=== PATIENT | female | born 1935 | race Caucasian/White ===

== ENCOUNTER 2018-04-05 14:09 | Inpatient (IN) ==
[2018-04-05] MEDS ORDERED: Sod Chloride 0.9% Inj 1,000 ML IV.SIG ONE ×2 (14:37→16:28)
[2018-04-05 15:32] LABS: Baso # (Auto) 0.1 th/mm3 (0.0-0.2); Baso % (Auto) 0.6 % (0.0-2.0); Bilirubin,Urine Negative (Negative); Clarity,Urine Clear (Clear); Color,Urine Yellow (Yellw/Straw); Eos # (Auto) 0.3 th/mm3 (0.0-0.4); Eos % (Auto) 2.1 % (0.0-4.0); Glucose,Urine (UA) Negative (Negative); Hematocrit 30.3 % (35.0-46.0); Hemoglobin 10.8 gm/dL (11.6-15.3); Leukocyte Esterase,Urine Trace (Negative); Lymph # (Auto) 0.9 th/mm3 (1.0-4.8); Lymph % (Auto) 6.6 % (9.0-44.0); Mean Corpuscular HGB Conc 35.6 % (32.0-36.0); Mean Corpuscular Hemoglobin 35.4 pg (27.0-34.0); Mean Corpuscular Volume 99.5 fL (80.0-100.0); Mean Platelet Volume 8.4 fL (7.0-11.0); Mono # (Auto) 0.7 th/mm3 (0.0-0.9); Neut # (Auto) 11.8 th/mm3 (1.8-7.7); Neut % (Auto) 85.7 % (16.0-70.0); Nitrite,Urine Negative (Negative); Platelet Count 390 th/mm3 (150-450); Red Blood Count 3.05 mil/mm3 (4.00-5.30); Red Cell Distribution Width 13.5 % (11.6-17.2); Urobilinogen,Urine 0.2 mg/dL (Less than 2); White Blood Count 13.8 th/mm3 (4.0-11.0)
[2018-04-05 15:39] LABS: Potassium 5.3 meq/L (3.5-5.1)
[2018-04-05 15:41] LABS: Squamous Epithelial Cell,Urine 0-5 /hpf (0-5)
[2018-04-05 15:42] LABS: Hyaline Casts,Urine 0-3 /lpf (0-3)
[2018-04-05 16:07] LABS: Albumin 2.9 g/dL (3.4-5.0); Calcium 12.1 mg/dL (8.5-10.1); Carbon Dioxide 24.1 meq/L (21.0-32.0); Thyroid Stimulating Hormone 1.65 uIU/mL (0.358-3.740); Total Protein 6.9 g/dL (6.4-8.2)
--- NOTE | 2018-04-05 16:12 | XR ---
EXAM DATE: 04/05/2018 3:37 PM EDT AGE/SEX: 83 years / Female INDICATIONS: . Fever, syncopal episodes for 1 week CLINICAL DATA: This is the patient's initial encounter. Patient reports that signs and symptoms have been present for 1 week and indicates a pain score of Nonresponsive. MEDICAL/SURGICAL HISTORY: Carcinoma, breast. Mastectomy, bilateral. COMPARISON: POI, XR CHEST PA AND LAT, 03/22/2015. . FINDINGS: PA and lateral views of the thorax demonstrate advanced COPD changes. No suspicious mass lesions are seen. The heart is normal in size. The mediastinal contours are within normal limits. The osseous structure s demonstrate old compression fractures at the thoracolumbar junction. These appear similar to previo us exam.. Exam appear stable compared to prior dated 03/22/2015. CONCLUSION: COPD changes. Stable compared to a previous dated 03/22/2015. Electronically signed by: Chuy Squires MD 04/05/2018 4:11 PM EDT
--- NOTE | 2018-04-05 16:43 | ED ---
HPI General Chief complaint: Weakness Stated complaint: general weakness Source: patient, family, RN notes reviewed and old records reviewed Mode of arrival: ambulatory History of Present Illness HPI narrative: 83yF sent in by neurologist for weakness. The patient's says that the patient has a history of Alzheimer's and was seeing her neurologist (Dr. Givens) today for generalized weakness; she was sent to the ED for evaluation with a note asking to r/o C diff and obtain labs/ UA. The patient's says that the patient has had diarrhea for the past several days, is not eating or drinking very much, and has been complaining of abdominal pain. No known recent antibiotics. The patient complains of bilateral elbow pain which her states is chronic. Related Data Home Medications Medication Instructions Recorded Confirmed Magestrol Acet 40mg/Ml 10 ml PO HS 04/05/18 04/05/18 amlodipine 2.5 mg PO BID 04/05/18 04/05/18 aspirin [Aspir-81] See Label Instructions .ROUTE 04/05/18 04/05/18 .COMPLEX hydrocodone-acetaminophen 1 tab PO Q6H PRN 04/05/18 04/05/18 levothyroxine [Synthroid] 75 mcg PO DAILY 04/05/18 04/05/18 memantine-donepezil [Namzaric] 10 mg PO DAILY 04/05/18 04/05/18 nebivolol [Bystolic] 2.5 mg PO DAILY 04/05/18 04/05/18 nifedipine 60 mg PO DAILY 04/05/18 04/05/18 olmesartan [Benicar] 10 mg PO DAILY 04/05/18 04/05/18 potassium chloride 10 meq PO BID 04/05/18 04/05/18 Allergies Allergy/AdvReac Type Severity Reaction Status Date / Time NONE Allergy Uncoded 04/11/12 14:27 Review of Systems ROS: all other systems reviewed are negative Constitutional Denies fever(s) Cardiovascular Denies chest pain Respiratory Denies cough Gastrointestinal Reports diarrhea and Denies nausea Genitourinary Denies dysuria Musculoskeletal Denies back pain PMFSH History History Provided By: Patient Medical History Medical History Alzheimer disease (Acute) History of hysterectomy (Acute) Hypertension (Acute) Thyroid disease (Acute) Surgical History Surgical History H/O dilation and curettage (Acute) Social History Social History Substance History: No History of Abuse Second Hand Smoke Exposure: No Smoking Status: Former smoker How Often Do You Have a Drink Containing Alcohol: Never Recent Travel in [facility] within the Last 8 Weeks: No Recent Out of Country Travel within the Last 8 Weeks: No Immunization History Tetanus Immunization: <5 Years Hx Influenza Vaccine This Season: Yes Exam Const General: no acute distress and frail appearing [facility] Head: normocephalic and atraumatic Face and sinus: normal facial exam Other: Mucosa dry Eyes General: appearance normal, both eyes and all related structures Pupils: PERRL Chest Chest: normal inspection of the chest Resp Effort & Inspection: normal respiratory effort Auscultation: no rhonchi and no wheezes Cardio Rate: regular rate Rhythm: regular rhythm GI Other: Abdomen soft, non-distended, mild to moderate LUQ tenderness, no guarding or rebound Skin General: no rashes or lesions noted Neuro General: alert, awake and no focal motor deficits Other: Oriented to person and place but not time Hard of hearing Psych Affect: normal affect Course Consultations Consultation #1: Case discussed with Dr. Curiel of nephrology; he recommends treating for hyperkalemia and [facility] she ultimately needs hemodialysis. Will discuss with [facility]. Time: 17:15 Initial Documented Vital Signs Temperature 98.0 F 04/05/18 14:10 Pulse Rate 77 04/05/18 14:10 Respiratory Rate 16 04/05/18 14:10 Blood Pressure 133/70 04/05/18 14:10 Pulse Oximetry 98 04/05/18 14:10 Last Documented Vital Signs Temperature 98.0 F 04/05/18 14:10 Pulse Rate 76 04/05/18 17:09 Respiratory Rate 16 04/05/18 17:09 Blood Pressure 148/67 H 04/05/18 17:09 Pulse Oximetry 96 04/05/18 17:09 Critical Care Time Critical Care Time: Yes Total Critical Care Time: 32 Attestation: Total critical care time 32 minutes. This includes examining and stabilizing the patient, gathering a history from a source other than the patient (i.e., chart review, patient's spouse), formulating a differential diagnosis, ordering and interpreting laboratory tests and EKG, ordering and interpreting radiology tests, discussing the patient's care with other providers (Dr. Curiel of nephrology, Dr. Khan of [facility]), treatment of acute hyperkalemia, re-evaluation at frequent intervals, and documentation. Amount of time is separate from teaching, counseling the patient and/or family, and exclusive of procedures. Medical Decision Making MDM Narrative Medical decision making narrative: Assessment: 83yF presenting with generalized weakness and diarrhea Plan: EKG and monitor Labs UA CXR CT abd/ pelvis Addendum: Patient found to be in acute kidney injury vs failure with multiple electrolyte abnormalities. She requires transfer to the main campus for possible hemodialysis if she does not improve with medical therapy. I explained these results and plan to her , who understands and agrees. Case discussed with Dr. Puga. Medical Screen Exam Complete: Yes Emergency Medical Condition: Yes Differential Diagnosis Differential Diagnosis: Differential diagnosis includes, but is not limited to: colitis/ C diff, diverticulitis, SBO, UTI/ pyelonephritis, pneumonia, ACS, arrhythmia, electrolyte abnormality, anemia, dehydration Medical Records Medical records reviewed: Yes I reviewed the patient's medical records. Lab Data Lab results reviewed: Yes I reviewed the patient's lab results. Result diagrams: 04/05/18 15:15 04/05/18 15:15 Lab Results 04/05/18 04/05/18 04/05/18 Range/Units 15:15 15:15 15:15 CBC w Diff Auto diff final WBC 13.8 H (4.0-11.0) th/mm3 RBC 3.05 L (4.00-5.30) mil/mm3 Hgb 10.8 L (11.6-15.3) gm/dL Hct 30.3 L (35.0-46.0) % MCV 99.5 (80.0-100.0) fL MCH 35.4 H (27.0-34.0) pg MCHC 35.6 (32.0-36.0) % RDW 13.5 (11.6-17.2) % Plt Count 390 (150-450) th/mm3 MPV 8.4 (7.0-11.0) fL Neut % (Auto) 85.7 H (16.0-70.0) % Lymph % (Auto) 6.6 L (9.0-44.0) % [place] % (Auto) 5.0 (0.0-8.0) % Eos % (Auto) 2.1 (0.0-4.0) % Baso % (Auto) 0.6 (0.0-2.0) % Neut # (Auto) 11.8 H (1.8-7.7) th/mm3 Lymph # (Auto) 0.9 L (1.0-4.8) th/mm3 [place] # (Auto) 0.7 (0.0-0.9) th/mm3 Eos # (Auto) 0.3 (0.0-0.4) th/mm3 Baso # (Auto) 0.1 (0.0-0.2) th/mm3 WBC Differential . Differential Comment . Sodium 137 (136-145) meq/L Potassium 5.3 H (3.5-5.1) meq/L Chloride 104 (98-107) meq/L Carbon Dioxide 24.1 (21.0-32.0) meq/L Anion Gap 9 (5-15) meq/L BUN 80 H (7-18) mg/dL Creatinine 5.90 H (0.50-1.00) mg/dL Estimated GFR 7 L (>89) mL/min Random Glucose 78 (74-106) mg/dL Calcium 12.1 H* (8.5-10.1) mg/dL Prot Corrected Calcium 12.3 H* (8.5-10.1) mg/dL Phosphorus 6.2 H (2.5-4.9) mg/dL Magnesium 3.5 H (1.5-2.5) mg/dL Total Bilirubin 0.3 (0.2-1.0) mg/dL AST 11 L (15-37) U/L ALT 16 (10-53) U/L Alkaline Phosphatase 52 (45-117) U/L Total Protein 6.9 (6.4-8.2) g/dL Albumin 2.9 L (3.4-5.0) g/dL Lipase 138 (73-393) U/L TSH 1.650 (0.358-3.740) uIU/mL Urine Color Yellow (Yellw/Straw) Urine Clarity Clear (Clear) Urine pH 6.0 (5.0-8.5) Ur Specific [place] 1.010 (1.002-1.035) Urine Protein 30 H (Neg-Trace) mg/dL Urine Glucose (UA) Negative (Negative) mg/dL Urine Ketones Negative (Negative) mg/dL Urine Occult Blood Negative (Negative) Urine Nitrate Negative (Negative) Urine Bilirubin Negative (Negative) Urine Urobilinogen 0.2 (Less than 2) mg/dL Ur Leukocyte Esterase Trace H (Negative) Urine WBC 6-8 H (0-5) /hpf Urine WBC Clumps Few H (None) Ur Squamous Epith Cells 0-5 (0-5) /hpf Hyaline Casts 0-3 (0-3) /lpf Micro UA Comment Culture indicated Urine Culture Comments Culture indicated Imaging Data Radiologist's impression: Chest X-Ray 04/05/18 14:37 CONCLUSION: COPD changes. Stable compared to a previous dated 03/22/2015. Abdomen/Pelvis CT 04/05/18 16:28 CONCLUSION: 1. Numerous tiny nonobstructing bilateral renal calculi. 2. Mild to moderate compression deformity of L1 associated with scoliosis. Fracture appears remote. 3. Mild left basilar infiltrate. 4. Trace pericardial effusion. ECG Data Attestation: I personally reviewed and interpreted this ECG as follows: Interpretation: Rate: 73 BPM Rhythm: Sinus [place]: Normal Intervals: Normal intervals, no blocks, QTc 375 ms Q waves: III, aVF T waves: Inverted in III ST segments: No elevations or depressions Impression: Non-specific EKG, Q waves in aVF are new when compared to EKG from . Discharge Plan Discharge Disposition Patient Disposition: Transfer To [facility] [place] Discharge Condition Condition: Stable Discharge Details Diagnosis: Acute renal failure, Acute hyperkalemia, Hypercalcemia, Hypermagnesemia Physicians Team ED Provider: Janice Ennis Primary Care Provider: Virginia Schumacher Other Providers: Chuy Curiel V Rxs /Orders / Referrals /Forms Prescriptions: No Action levothyroxine [Synthroid] 75 mcg Tablet 75 mcg PO DAILY RF: 0 olmesartan [Benicar] 5 mg Tablet 10 mg PO DAILY RF: 0 nebivolol [Bystolic] 2.5 mg Tablet 2.5 mg PO DAILY RF: 0 amlodipine 2.5 mg Tablet 2.5 mg PO BID RF: 0 potassium chloride 10 mEq Capsule, Extended Release 10 meq PO BID RF: 0 nifedipine 60 mg Tablet Extended Release 60 mg PO DAILY RF: 0 Magestrol Acet 40mg/Ml 10 ml PO HS RF: 0 aspirin [Aspir-81] 81 mg Tablet,Delayed Release (Dr/Ec) See Label Instructions .ROUTE .COMPLEX RF: 0 memantine-donepezil [Namzaric] 28-10 mg Capsule,Sprinkle,Er 24hr 10 mg PO DAILY RF: 0 hydrocodone-acetaminophen 5-325 mg Tablet 1 tab PO Q6H PRN (Reason: Pain) RF: 0 Discharge Interventions Interventions: Vital Signs Last Done: 04/05/18 17:09 Status ED Status: With Doctor
--- NOTE | 2018-04-05 16:49 | CT ---
EXAM DATE: 04/05/2018 4:40 PM EDT AGE/SEX: 83 years / Female INDICATIONS: Left upper quadrant pain. General weakness. CLINICAL DATA: This is the patient's initial encounter. Patient reports that signs and symptoms have been present for 4 - 6 days and indicates a pain score of 2/10. MEDICAL/SURGICAL HISTORY: Alzheimer's disease. Hypertension. Hysterectomy. RADIATION DOSE: 4.99 CTDI (mGy) COMPARISON: No prior exams available for comparison. TECHNIQUE: Multiple contiguous axial images were obtained through the abdomen. Images were obtained using multiple row detector helical technique. Using automated exposure control and adjustment of the mA and/or kV according to patient size, radiation dose was kept as low as reasonably achievable to o btain optimal diagnostic quality images. DICOM format image data is available electronically for rev iew and comparison. FINDINGS: There is mild airspace disease at the left base and minimal dependent atelectasis at the right lung b ase. Breast augmentation noted. Trace pericardial effusion. No acute findings in the liver, adrenals, spleen or pancreas. Numerous small 1 to 2 mm calculi in bot h upper and lower pole kidneys. Multiple left renal cysts. No bowel obstruction. Mild ileus. No free air or free fluid. There is a mild to moderate compression deformity of L1 on the right side. No spondylolisthesis or si gnificant retropulsion. CONCLUSION: 1. Numerous tiny nonobstructing bilateral renal calculi. 2. Mild to moderate compression deformity of L1 associated with scoliosis. Fracture appears remote. 3. Mild left basilar infiltrate. 4. Trace pericardial effusion. Electronically signed by: Pb Carrington MD 04/05/2018 4:48 PM EDT
[2018-04-05] MEDS ORDERED: Calcium Gluconate Inj 1 GM in Dextrose 5% in Water Inj 100 ML IV.SIG ONE ×2 (17:07)
[2018-04-05 17:19] LABS: Magnesium 3.5 mg/dL (1.5-2.5); Phosphorus 6.2 mg/dL (2.5-4.9)
[2018-04-05] MEDS ORDERED: Acetaminophen 325 MG Tablet PO PRN (18:10)
[2018-04-05] MEDS: Sod Chloride 0.9% Inj 1,000 ML IV.CONT SCH (18:40)
[2018-04-05] MEDS ORDERED: Calcitonin Salmon Inj 400 UNIT/2 ML Vial IM ONE (20:00)
[2018-04-06] MEDS: Sod Chloride 0.9% Inj 1,000 ML IV.CONT SCH ×2 (04:15→17:41)
--- NOTE | 2018-04-06 09:49 | P.HPIM ---
History of Present Illness Service: [facility] Primary Care Physician: Virginia Schumacher DO Chief Complaint: Sent from doctor's office History of Present Illness: 83-year-old female with a medical history significant for Alzheimer's dementia, hypertension, hypothyroidism sent from the neurologist, Dr. Givens's office for generalized weakness. Patient sent for evaluation for C. difficile and UTI. Apparently she has been having diarrhea for the past month per her . Daughter at bedside reports it probably has been longer than a month. The patient herself has dementia and cannot contribute to the history. She does complain of chronic bilateral elbow pain. Her appetite has been poor, not eating or drinking very much. Evaluation in the emergency room revealed acute renal failure and probable UTI. Regarding chronic diarrhea, the patient was seen by Dr. Araujo once outpatient. - Diagnosis (1) Acute renal failure (2) Acute hyperkalemia (3) Hypercalcemia (4) Hypermagnesemia (5) Chronic diarrhea (6) Severe dehydration Inpatient Certification: I certify that the inpatient services were ordered in accordance with Medicare regulations governing the order. This includes certification that hospital inpatient services are reasonable and necessary and in the case of services not specified as inpatient-only under 42 CFR 419.22(n), that they are appropriately provided as inpatient services in accordance to with the 2-midnight benchmark under 43 CFR 412.3(e) Estimated Total Length of Stay (Days): 7 Plans for Post Hospital Care: Not yet determined Review of Systems unobtainable due to mental status PMFSH - History History Provided By: Patient - Medical History Medical History: Medical History (Last Reviewed 04/06/18 @ 17:12 by Judith Benjamin MD) Alzheimer disease History of hysterectomy Hypertension Thyroid disease - Surgical History Surgical History: Surgical History (Last Reviewed 04/06/18 @ 17:12 by Judith Benjamin MD) H/O dilation and curettage - Family History Family History: Family History (Last Updated 04/06/18 @ 17:12 by Judith Benjamin MD) Other Family history non-contributory - Tobacco History Second Hand Smoke Exposure: No Tobacco Use In Past 30 Days: No Smoking Status: Former smoker - Alcohol History How Often Do You Have a Drink Containing Alcohol: Never - Substance Use History Substance History: No History of Abuse - Travel History Recent Travel in the [place] Within the Last 8 Weeks: No Recent Travel Out of the Country Within the Last 8 Weeks: No - Immunization History Tetanus Immunization: <5 Years Hx Influenza Vaccine This Season: Yes Medications and Allergies Active Medications: Active Medications Acetaminophen (Tylenol) 650 mg PO Q4H PRN PRN Reason: Temp > 100.4 Al Hydroxide/Mg Hydroxide (Milk Of [place] Liq) 30 ml PO Q12H PRN PRN Reason: Mild Constipation Sodium Chloride (Ns Inj) 1,000 mls @ 100 mls/hr IV.CONT .Q10H [facility] Last Infusion: 04/06/18 09:11 Dose: 100 mls/hr Ceftriaxone Sodium 1,000 mg/ (Sodium Chloride) 100 mls @ 200 mls/hr IV.SIG Q24H [facility] Allergies Allergy/AdvReac Type Severity Reaction Status Date / Time NONE Allergy Uncoded 04/11/12 14:27 Home Medications Medication Instructions Recorded Confirmed Type Magestrol Acet 40mg/Ml 10 ml PO HS 04/05/18 04/05/18 History amlodipine 2.5 mg PO BID 04/05/18 04/05/18 History aspirin [Aspir-81] See Label Instructions .ROUTE 04/05/18 04/05/18 History .COMPLEX hydrocodone-acetaminophen 1 tab PO Q6H PRN 04/05/18 04/05/18 History levothyroxine [Synthroid] 75 mcg PO DAILY 04/05/18 04/05/18 History memantine-donepezil [Namzaric] 10 mg PO DAILY 04/05/18 04/05/18 History nebivolol [Bystolic] 2.5 mg PO DAILY 04/05/18 04/05/18 History nifedipine 60 mg PO DAILY 04/05/18 04/05/18 History olmesartan [Benicar] 10 mg PO DAILY 04/05/18 04/05/18 History potassium chloride 10 meq PO BID 04/05/18 04/05/18 History Exam Vital signs: Vital Signs 04/05/18 14:10 04/05/18 17:09 04/05/18 20:00 Temperature 98.0 F 97.6 F Pulse Rate 77 76 84 Respiratory Rate 16 16 16 Blood Pressure 133/70 148/67 H 180/87 H Pulse Oximetry 98 96 97 04/06/18 00:00 04/06/18 04:00 Temperature Pulse Rate 76 76 Respiratory Rate 16 16 Blood Pressure Pulse Oximetry 94 L 95 Intake & Output 04/05/18 04/06/18 04/06/18 18:59 06:59 18:59 Intake Total 1100 / 1100 1000 / 1000 600 / 600 Output Total 182 / 1825 Balance 1100 / 1100 -825 / -825 600 / 600 Weight 37.6 kg 37.5 kg Intake: IV 1100 / 1100 1000 / 1000 600 / 600 NS Inj 1,000 ML @ 100 mls/hr IV 600 / 600 .CONT .Q10H [facility] Rx#:[id number] NS Inj 1,000 ML @ Wide Open IV. 1000 / 1000 SIG BOLUS ONE Rx#:[id number] Rocephin Inj 1,000 MG In NS Inj 100 / 100 100 ML @ 200 mls/hr IV.SIG ONCE ONE Rx#:[id number] Output: Urine 1824 Other: Date of Last Bowel Movement 04/05/18 # Bowel Movements 1 Narrative: CONSTITUTIONAL/GENERAL: Elderly female, demented.. Vital signs reviewed SKIN: No jaundice, rashes, or concerning lesions. Not diaphoretic. HEAD: Atraumatic. Normocephalic. EYES: Pupils equal and round and reactive. ENT: Hearing grossly normal. Nose without drainage. NECK: Trachea midline. Neck is supple, non-tender. No palpable thyroid enlargement or nodularity. CARDIOVASCULAR: Normal rate and regular rhythm without murmurs, gallops, or rubs. No JVD. Peripheral pulses 2+ and symmetric. RESPIRATORY/CHEST: Symmetric, unlabored respirations. Breath sounds equal and clear to auscultation bilaterally. No wheezes, crackles, rales, or rhonchi. GASTROINTESTINAL: Abdomen soft, non-tender, non-distended. No guarding. Bowel sounds present. MUSCULOSKELETAL: Extremities without clubbing, cyanosis, or edema. NEUROLOGICAL: Awake and alert. Confused. Follow some commands. Generalized weakness. Results - Labs CBC & Chem 7: 04/06/18 11:36 04/06/18 11:36 Labs: Short CBC 04/05/18 Range/Units 15:15 WBC 13.8 H (4.0-11.0) th/mm3 Hgb 10.8 L (11.6-15.3) gm/dL Hct 30.3 L (35.0-46.0) % Plt Count 390 (150-450) th/mm3 BMP 04/05/18 15:15 Sodium 137 Potassium 5.3 H Chloride 104 Carbon Dioxide 24.1 BUN 80 H Creatinine 5.90 H Calcium 12.1 H* Liver Function 04/05/18 Range/Units 15:15 Total Bilirubin 0.3 (0.2-1.0) mg/dL AST 11 L (15-37) U/L ALT 16 (10-53) U/L Alkaline Phosphatase 52 (45-117) U/L Albumin 2.9 L (3.4-5.0) g/dL Urine 04/05/18 Range/Units 15:15 Urine Color Yellow (Yellw/Straw) Urine Clarity Clear (Clear) Urine pH 6.0 (5.0-8.5) Ur Specific [place] 1.010 (1.002-1.035) Urine Protein 30 H (Neg-Trace) mg/dL Urine Glucose (UA) Negative (Negative) mg/dL - Imaging Impressions Chest X-Ray 04/05/18 14:37 CONCLUSION: COPD changes. Stable compared to a previous dated 03/22/2015. Abdomen/Pelvis CT 04/05/18 16:28 CONCLUSION: 1. Numerous tiny nonobstructing bilateral renal calculi. 2. Mild to moderate compression deformity of L1 associated with scoliosis. Fracture appears remote. 3. Mild left basilar infiltrate. 4. Trace pericardial effusion. Caprini VTE Risk Assessment Caprini VTE Risk Assessment: Moderate/High Risk (score >= 2) Caprini Risk Assessment Model: Point Value = 1 Point Value = 2 Point Value = 3 Point Value = 5 Age 41-60 Minor surgery BMI > 25 kg/m2 Swollen legs Varicose veins or History of unexplained or recurrent spontaneous Oral contraceptives or hormone replacement Sepsis (< 1 month) Serious lung disease, including pneumonia (< 1 month) Abnormal pulmonary function Acute myocardial infarction Congestive heart failure (< 1 month) History of inflammatory bowel disease Medical patient at bed rest Age 61-74 Arthroscopic surgery Major open surgery (> 45 min) Laparoscopic surgery (> 45 min) Malignancy Confined to bed (> 72 hours) Immobilizing plaster cast Central venous access Age >= 75 History of VTE Family history of VTE Factor V Leiden Prothrombin [id number] Lupus anticoagulant Anticardiolipin antibodies Elevated serum homocysteine Heparin-induced thrombocytopenia Other congenital or acquired thrombophilia Stroke (< 1 month) Elective arthroplasty Hip, pelvis, or leg fracture Acute spinal cord injury (< 1 month) Prophylaxis Regimen: Total Risk Factor Score Risk Level Prophylaxis Regimen 0-1 Low Early ambulation 2 Moderate Order ONE of the following: *Sequential Compression Device (SCD) *Heparin 5000 units SQ BID 3-4 Higher Order ONE of the following medications: *Heparin 5000 units SQ TID *Enoxaparin/Lovenox 40 mg SQ daily (WT < 150 kg, CrCl > 30 mL/min) *Enoxaparin/Lovenox 30 mg SQ daily (WT < 150 kg, CrCl > 10-29 mL/min) *Enoxaparin/Lovenox 30 mg SQ BID (WT < 150 kg, CrCl > 30 mL/min) AND/OR *Sequential Compression Device (SCD) 5 or more Highest Order ONE of the following medications: *Heparin 5000 units SQ TID (Preferred with Epidurals) *Enoxaparin/Lovenox 40 mg SQ daily (WT < 150 kg, CrCl > 30 mL/min) *Enoxaparin/Lovenox 30 mg SQ daily (WT < 150 kg, CrCl > 10-29 mL/min) *Enoxaparin/Lovenox 30 mg SQ BID (WT < 150 kg, CrCl > 30 mL/min) AND *Sequential Compression Device (SCD) Assessment and Plan - Assessment (1) Acute renal failure Code(s): N17.9 - Acute kidney failure, unspecified Status: Acute (2) Acute hyperkalemia Code(s): E87.5 - Hyperkalemia Status: Acute (3) Hypercalcemia Code(s): E83.52 - Hypercalcemia Status: Acute (4) Hypermagnesemia Code(s): E83.41 - Hypermagnesemia Status: Acute (5) Chronic diarrhea Code(s): K52.9 - Noninfective gastroenteritis and colitis, unspecified Status : Acute (6) Severe dehydration Code(s): E86.0 - Dehydration Status: Acute - Plan 83-year-old female admitted with acute renal failure and multiple electrolyte abnormalities likely secondary to dehydration from chronic diarrhea over the past 1+ month. Patient also with evidence of urinary tract infection. Acute renal failure: Secondary to prerenal azotemia from severe dehydration. - Appreciate nephrology following. -Continue IV hydration. Avoid nephrotoxins. - Follow renal functions daily. Chronic diarrhea: This has been ongoing for at least the past month. Follows outpatient with Dr. Thomas. It does not appear she is able to maintain her fluid balance. -C. difficile negative. Send stool for culture, ova and parasites pending. - Consult the patient's oxide furnace tender for assistance. - Add Lactinex Multiple electrolytes abnormalities including hypercalcemia, hypermagnesemia, high phosphate. Secondary to severe dehydration. - Continue IV hydration. Follow trend. Possible UTI: - Empiric Rocephin. Follow urine cultures. Continue chronic medications for hypothyroidism and dementia. GI prophylaxis: PPI. Stool softener PRN constipation. DVT PPx: SCDs
--- NOTE | 2018-04-06 11:45 | MB ---
cc: Chuy Curiel MD DATE: 03/30/2018 REASON FOR CONSULTATION: Acute renal failure management. HISTORY OF PRESENT ILLNESS: This is an 83-year-old female with a history of Alzheimer disease. She also has a history of hypertension. The patient lives at home with her . She apparently has had diarrhea for several days and generalized weakness. She was seeing a neurologist who advised her to come to the emergency room for further evaluation for her weakness and possible C. difficile for diarrhea evaluation. The patient was seen in the emergency room and was found to have a BUN of 80 and a creatinine of 5.9. She had a potassium of 5.3 as well. She had no other labs here are available for review. The patient was assessed with possible volume depletion and was medically treated for hyperkalemia. She was started on IV fluids with normal saline. This was last night. Repeat labs are not available today; however, she was started on IV fluids and she made approximately 1.8 liters urine output over the last 12 hours overnight. Given the acute renal failure nephrology was consulted for further evaluation. At this point the patient is resting in bed comfortably with no acute distress. REVIEW OF SYSTEMS: The patient denies any chest pains, no shortness of breath, no nausea, no vomiting; however, has had diarrhea and generalized weakness. Otherwise, review of systems negative. PAST MEDICAL HISTORY: Includes Alzheimer disease, hysterectomy, hypertension, and thyroid disease. PAST SURGICAL HISTORY: Includes dilatation and curettage. FAMILY HISTORY: Noncontributory. SOCIAL HISTORY: Former smoker; however, no recent tobacco, alcohol, or drug use. MEDICATIONS AT HOME: 1. Megace. 2. Amlodipine 2.5 mg p.o. b.i.d. 3. Aspirin. 4. Hydrocodone p.r.n. 5. Synthroid 75 mcg daily. 6. Namzaric. 7. Bystolic 2.5 mg daily. 8. Nifedipine 60 mg p.o. daily. 9. Benicar 10 mg p.o. daily. 10. Potassium chloride 10 mEq p.o. b.i.d. ALLERGIES: NO KNOWN DRUG ALLERGIES. PHYSICAL EXAMINATION: VITAL SIGNS: At time of evaluation awake, frail. No apparent distress. NECK: Soft, supple. CARDIAC: Regular rate and rhythm. PULMONARY: Clear to auscultation. ABDOMEN: Soft, nontender, nondistended. EXTREMITIES: No edema. NEUROLOGIC: Awake, alert and oriented; however, some confusion with history of Alzheimer's. ASSESSMENT AND PLAN: 1. Acute kidney injury. The patient apparently had a previous creatinine of 1.1 at [facility] in 12/2017. There are no other labs for comparison here. The patient's family denies any previous history of kidney issues. At this point she has presented with significant azotemia. I suspect this is all acute renal failure secondary to volume depletion and recent diarrhea. Her urinalysis showed hyaline casts suggestive of volume depletion. She was started on IV fluids and currently continues on IV fluids with normal saline at 100 mL per hour. Overnight, she has made approximately 1.8 liters of urine output. This is all suggestive of an acute component with good urine output in response to IV fluids. At this point continue IVFs and keep Childress catheter for now. We will check fractional excretion of sodium as well as a renal ultrasound to assess for any chronic kidney disease; however, given her previous creatinine of 1 three months ago, I suspect this is all acute secondary to diarrhea. Continue to monitor at this point. 2. Nonobstructive renal stones. The patient had CT scan with nonobstructive renal stones seen. Continue with IV fluids at this point. There are no signs of any apparent hydronephrosis on the CT scan; however, we will go ahead and further assess these stones, as well as any possibility of obstructive renal disease with a renal ultrasound. 3. Hyperkalemia. The patient had a potassium of 5.2. This was medically treated. She is making good urine output at this point and I suspect this potassium will improve. Continue to hold ARB as well as her home potassium supplementation. 4. Hypercalcemia, patient with a calcium level of 12. She apparently had a previous calcium level of 9 three months ago at [facility]. This may be secondary to acute renal failure. Continue with IV fluids at this point. Continue to follow calcium levels. We will check an SPEP and UPEP as well. This is likely due however, to volume depletion. 5. Diarrhea. Continue to follow with primary team. Apparently this has been addressed in the past and the patient does follow up with GI as an outpatient. 6. Alzheimer disease. Continue supportive care. 7. Hypothyroidism. Continue Synthroid. MD FRAN Paredes/licha , 10:24 AM , 10:36 AM MELISSA
[2018-04-06 12:25] LABS: Hematocrit 28.8 % (35.0-46.0); Hemoglobin 9.7 gm/dL (11.6-15.3); Mean Corpuscular HGB Conc 33.7 % (32.0-36.0); Mean Corpuscular Hemoglobin 34.3 pg (27.0-34.0); Mean Corpuscular Volume 101.6 fL (80.0-100.0); Mean Platelet Volume 7.9 fL (7.0-11.0); Platelet Count 347 th/mm3 (150-450); Red Blood Count 2.83 mil/mm3 (4.00-5.30); Red Cell Distribution Width 13.7 % (11.6-17.2); White Blood Count 12.1 th/mm3 (4.0-11.0)
[2018-04-06 12:43] LABS: Calcium 10.3 mg/dL (8.5-10.1); Carbon Dioxide 22.6 meq/L (21.0-32.0); Potassium 4.2 meq/L (3.5-5.1)
--- NOTE | 2018-04-06 13:36 | US ---
EXAM DATE: 04/06/2018 1:32 PM EDT AGE/SEX: 83 years / Female INDICATIONS: Acute renal failure. CLINICAL DATA: This is the patient's initial encounter. Patient reports that signs and symptoms have been present for 1 day and indicates a pain score of 0/10. MEDICAL/SURGICAL HISTORY: . Alzheimer disease. Hypertension. Thyroid disease. . Hysterecto my. Dilation and curettage. COMPARISON: [facility], CT ABDOMEN & PELVIS W/O CONTRAST, 04/05/2018. . MEASUREMENTS: Right Kidney:__10.2 x 6.0 x 4.4 cm Left Kidney:__10.9 x 4.9 x 5.0 cm FINDINGS: Right Kidney: Redemonstration of numerous echogenic renal calyceal calculi. No significant hydronephr osis or gross focal mass. Left Kidney: Redemonstration of numerous echogenic calyceal calculi. Simple appearing anechoic cysts in the inferior pole measuring 1.8 x 1.6 x 1.7 cm and in the inferior pole measuring 2.4 x 1.6 x 2.5 cm. Bladder: Childress catheter is present. Bladder decompressed. Other: None. CONCLUSION: 1. Redemonstration of numerous bilateral renal calyceal calculi similar to recent CT exam. 2. No hydronephrosis. 3. Small left renal cysts. Electronically signed by: Markus Carbone MD 04/06/2018 1:35 PM EDT
--- NOTE | 2018-04-06 15:47 | ECG ---
Date Performed: 04/05/2018 Time Performed: 15:04:49 PTAGE: 83 years EKG: Sinus rhythm BORDERLINE LEFT AXIS DEVIATION When compared to previous tracing, axis is somewhat more Leftward, ot herwise no significant change. BORDERLINE ECG PREVIOUS TRACING : 04/30/2000 11.03 DOCTOR: Manuel Jara Interpretating Date/Time 04/06/2018 15:46:14
[2018-04-06 16:26] LABS: Bilirubin,Urine Negative (Negative); Clarity,Urine Clear (Clear); Color,Urine Straw (Yellw/Straw); Glucose,Urine (UA) 50 mg/dL (Negative); Leukocyte Esterase,Urine Negative (Negative); Mucus,Urine Few /lpf (Occasional); Nitrite,Urine Negative (Negative); Specific Gravity,Urine 1.009 (1.002-1.035)
[2018-04-07] MEDS: Megestrol Acetate Liq 400 MG/10 ML UDC PO SCH ×2 (02:22→23:00)
[2018-04-07] MEDS: Potassium Chloride 10 MEQ ER Capsule PO SCH ×3 (02:22→23:00)
[2018-04-07] MEDS: Sod Chloride 0.9% Inj 1,000 ML IV.CONT SCH ×2 (05:40→17:25)
[2018-04-07 06:03] LABS: Hematocrit 28.4 % (35.0-46.0); Hemoglobin 9.6 gm/dL (11.6-15.3); Mean Corpuscular HGB Conc 33.8 % (32.0-36.0); Mean Corpuscular Hemoglobin 34.4 pg (27.0-34.0); Mean Corpuscular Volume 101.8 fL (80.0-100.0); Mean Platelet Volume 7.9 fL (7.0-11.0); Platelet Count 362 th/mm3 (150-450); Red Blood Count 2.79 mil/mm3 (4.00-5.30); Red Cell Distribution Width 13.7 % (11.6-17.2); White Blood Count 11.4 th/mm3 (4.0-11.0)
[2018-04-07 06:14] LABS: Calcium 9.1 mg/dL (8.5-10.1); Potassium 3.6 meq/L (3.5-5.1)
[2018-04-07] MEDS: Levothyroxine 75 MCG Tablet PO SCH (06:40)
--- NOTE | 2018-04-07 09:55 | P.PNNP ---
Subjective Interval history: feels tired today, but improved mentation per Physical Exam Vital signs: Vital Signs 04/06/18 10:00 04/06/18 11:00 04/06/18 12:00 Temperature 98.1 F Pulse Rate 74 76 84 Respiratory Rate 16 Blood Pressure 160/86 H Pulse Oximetry 96 04/06/18 13:00 04/06/18 14:00 04/06/18 15:00 Temperature Pulse Rate 66 76 72 Respiratory Rate Blood Pressure Pulse Oximetry 04/06/18 16:00 04/06/18 17:00 04/06/18 18:00 Temperature 98.4 F Pulse Rate 76 68 74 Respiratory Rate 16 Blood Pressure 143/70 H Pulse Oximetry 96 04/06/18 20:00 04/07/18 00:00 Temperature 99.3 F Pulse Rate 86 74 Respiratory Rate 16 18 Blood Pressure 175/94 H 171/86 H Pulse Oximetry 95 98 Intake & Output 04/06/18 04/07/18 04/07/18 18:59 06:59 18:59 Intake Total 1580 / 1580 1240 / 1240 Output Total 1000 / 1000 500 / 500 Balance 580 / 580 740 / 740 Weight 39.5 kg Intake: IV 1100 / 1100 1000 / 1000 NS Inj 1,000 ML @ 100 mls/hr IV 1000 / 1000 1000 / 1000 .CONT .Q10H [facility] Rx#:[id number] Rocephin Inj 1,000 MG In NS Inj 100 / 100 100 ML @ 200 mls/hr IV.SIG Q24H [facility] Rx#:[id number] Oral 480 / 480 240 / 240 Output: Urine Amount (Catheter) 1000 / 1000 500 / 500 Indwelling Urethral Catheter 1000 / 1000 500 / 500 Other: Date of Last Bowel Movement 04/05/18 # Bowel Movements 1 - Constitutional no acute distress - Routine HEENT Exam Head: Present: normocephalic Eye: Present: EOMI ENT: Present: mucous membranes moist - Routine Neck Exam Present: supple - Routine Respiratory Exam Present: decreased breath sounds - Routine Cardiovascular Exam Present: RRR - Routine Abdominal Exam Present: soft - Routine Extremities Exam Comments: no edema - Routine Skin Exam Present: intact - Routine Neurological Exam Present: alert - Detailed Neurological Exam: Coma Scale Eye Opening: Spontaneous - Routine Psychiatric Exam Present: normal affect - Urinary Catheter Management Indwelling Urethral Catheter Cath placed during this visit: yes Reason for continuing: Hourly intake/output Insertion date: 04/05/18 Insertion time: 17:30 Assessment and Plan - Assessment (1) Acute renal failure Code(s): N17.9 - Acute kidney failure, unspecified Status: Acute Plan: The patient apparently had a previous creatinine of 1.1 at [facility] in 12/2017. Apparent ASHWINI due to volume depletion from diarrhea. Initial U/A with hyaline casts suggestive of volume depletion. Creatinine slowly improving on IVFs: Continue NS at 100cc/hour. Renal ultrasound and CT with non-obstructive renal stones - continue IVFs for now. 1.5L UOP/ 24 hours. No diarrhea today or yesterday. . (2) Acute hyperkalemia Code(s): E87.5 - Hyperkalemia Status: Acute Plan: Improved with increased UOP and IVFs. Continue to hold ARB as well as her home potassium supplementation for now. (3) Hypercalcemia Code(s): E83.52 - Hypercalcemia Status: Acute Plan: Initial calcium level of 12, improved to 9 now on IVFs and increased UOP. She apparently had a previous calcium level of 9 three months ago at [facility]. SPEP and UPEP were ordered yesterday, results pending. (4) Alzheimer disease Code(s): G30.9 - Alzheimer's disease, unspecified; F02.80 - Dementia in other diseases classified elsewhere without behavioral disturbance Status: Acute Plan: continue supportive care (5) Hypothyroidism Code(s): E03.9 - Hypothyroidism, unspecified Status: Acute Plan: continue synthroid
--- NOTE | 2018-04-07 11:06 | P.CONGI ---
History of Present Illness Consult date: 04/07/18 Consult reason: Persistent diarrhea Chief complaint: Acute renal failure, Hyperkalemia, History of Present Illness: This is a elderly frail 83-year-old female who came into the hospital on 2017 with generalized weakness and persistent diarrhea for at least a month or a little longer. According to the record patient is followed by [facility]. Patient was sent to the hospital for UTI and evaluation for C. difficile which currently is negative. Patient has Alzheimer's dementia and is her spokesperson. According to patient's she has been having diarrhea for the past month, states the stools are loose and dark brown without any obvious blood. On exam patient also noted some mild left lower quadrant discomfort to light palpation. CT scan shows mild ileus but no obstruction on 04/05/2018. does note some bright red streaking of blood on the toilet paper when she wipes vigorously. He started using some baby wipes and any obvious blood has gradually resolved. He denies any constipation. states patient does have occasional nausea and vomited some mucus approximately 24 hours ago. Speech therapy evaluated patient swallow and recommended pured diet with thin liquids which patient seems to be tolerating without any difficulty. Currently patient is not on any blood thinners and was seen per Dr. Thomas approximately 2 weeks ago who ordered some stool studies. Ultrasound of the abdomen and gallbladder showed numerous renal calculi. Current labs show hemoglobin 9.6, lipase 138, bilirubin and LFTs low or normal range, and WBC count 11.4. Currently patient is resting in the bed awake but randomly makes any conversation. Gastroenterology was consulted to assist in her uncontrolled diarrhea, and now will monitor the findings of the CT scan of mild ileus. Currently patient remains on IV fluids, and is eating pured diet with thin liquids. Review of Systems All other systems reviewed negative except as stated in HPI PMFSH - History History Provided By: Patient - Medical History Medical History: Medical History (Last Reviewed 04/07/18 @ 08:14 by Venessa Sifuentes) Alzheimer disease History of hysterectomy Hypertension Thyroid disease - Surgical History Surgical History: Surgical History (Last Reviewed 04/06/18 @ 17:12 by Judith Benjamin MD) H/O dilation and curettage - Family History Family History: Family History (Last Updated 04/06/18 @ 17:12 by Judith Benjamin MD) Other Family history non-contributory - Tobacco History Second Hand Smoke Exposure: No Tobacco Use In Past 30 Days: No Smoking Status: Former smoker - Alcohol History How Often Do You Have a Drink Containing Alcohol: Never - Substance Use History Substance History: No History of Abuse - Travel History Recent Travel in the [place] Within the Last 8 Weeks: No Recent Travel Out of the Country Within the Last 8 Weeks: No - Immunization History Tetanus Immunization: <5 Years Hx Influenza Vaccine This Season: Yes Medications and Allergies Active Medications: Active Medications Acetaminophen (Tylenol) 650 mg PO Q4H PRN PRN Reason: Temp > 100.4 Hydrocodone Bitart/Acetaminophen ([place] 5/325) 1 tab PO Q6H PRN PRN Reason: PAIN SCALE 1 TO 10 Last Admin: 04/07/18 09:41 Dose: 1 tab Al Hydroxide/Mg Hydroxide (Milk Of Magnesia Liq) 30 ml PO Q12H PRN PRN Reason: Mild Constipation Donepezil HCl (Aricept) 10 mg PO DAILY [facility] Last Admin: 04/07/18 09:43 Dose: 10 mg Sodium Chloride (Ns Inj) 1,000 mls @ 100 mls/hr IV.CONT .Q10H [facility] Last Admin: 04/07/18 05:40 Dose: 100 mls/hr Ceftriaxone Sodium 1,000 mg/ (Sodium Chloride) 100 mls @ 200 mls/hr IV.SIG Q24H [facility] Last Admin: 04/07/18 09:43 Dose: 200 mls/hr Lactobacillus Acidophilus (Lactinex Pkt) 1 gm PO TID [facility] Last Admin: 04/07/18 09:41 Dose: 1 gm Levothyroxine Sodium (Synthroid) 75 mcg PO DAILY@0600 [facility] Last Admin: 04/07/18 06:40 Dose: 75 mcg Megestrol Acetate (Megace Liq) 400 mg PO HS [facility] Last Admin: 04/07/18 02:22 Dose: Not Given Memantine (Namenda) 10 mg PO BID [facility] Last Admin: 04/07/18 09:43 Dose: 10 mg Nebivolol (Bystolic) 2.5 mg PO DAILY [facility] Last Admin: 04/07/18 09:43 Dose: 2.5 mg Nifedipine (Procardia) 20 mg PO TID [facility] Last Admin: 08/18/18 17:41 Dose: 20 mg Potassium Chloride (Kcl) 10 meq PO BID [facility] Last Admin: 04/07/18 09:43 Dose: 10 meq Allergies Allergy/AdvReac Type Severity Reaction Status Date / Time NONE Allergy Uncoded 04/11/12 14:27 Home Medications Medication Instructions Recorded Confirmed Type Magestrol Acet 40mg/Ml 10 ml PO HS 04/05/18 04/05/18 History amlodipine 2.5 mg PO BID 04/05/18 04/05/18 History aspirin [Aspir-81] See Label Instructions .ROUTE 04/05/18 04/05/18 History .COMPLEX hydrocodone-acetaminophen 1 tab PO Q6H PRN 04/05/18 04/05/18 History levothyroxine [Synthroid] 75 mcg PO DAILY 04/05/18 04/05/18 History memantine-donepezil [Namzaric] 10 mg PO DAILY 04/05/18 04/05/18 History nebivolol [Bystolic] 2.5 mg PO DAILY 04/05/18 04/05/18 History nifedipine 60 mg PO DAILY 04/05/18 04/05/18 History olmesartan [Benicar] 10 mg PO DAILY 04/05/18 04/05/18 History potassium chloride 10 meq PO BID 04/05/18 04/05/18 History Exam Vital signs: Vital Signs 04/06/18 12:00 04/06/18 13:00 04/06/18 14:00 Temperature 98.1 F Pulse Rate 84 66 76 Respiratory Rate 16 Blood Pressure 160/86 H Pulse Oximetry 96 04/06/18 15:00 04/06/18 16:00 04/06/18 17:00 Temperature 98.4 F Pulse Rate 72 76 68 Respiratory Rate 16 Blood Pressure 143/70 H Pulse Oximetry 96 04/06/18 18:00 04/06/18 19:00 04/06/18 20:00 Temperature 99.3 F Pulse Rate 74 76 72 Respiratory Rate 16 Blood Pressure 175/94 H Pulse Oximetry 95 04/06/18 21:00 04/06/18 22:00 04/06/18 23:00 Temperature Pulse Rate 66 72 66 Respiratory Rate Blood Pressure Pulse Oximetry 04/07/18 00:00 04/07/18 01:00 04/07/18 02:00 Temperature Pulse Rate 69 70 72 Respiratory Rate 16 Blood Pressure 171/86 H Pulse Oximetry 98 04/07/18 03:00 04/07/18 04:00 04/07/18 05:00 Temperature Pulse Rate 74 64 60 Respiratory Rate 16 Blood Pressure Pulse Oximetry 96 04/07/18 06:00 Temperature Pulse Rate 66 Respiratory Rate Blood Pressure Pulse Oximetry Intake & Output 04/06/18 04/07/18 04/07/18 18:59 06:59 18:59 Intake Total 1580 / 1580 1480 / 1480 Output Total 1000 / 1000 500 / 500 Balance 580 / 580 980 / 980 Weight 39.5 kg Intake: IV 1100 / 1100 1000 / 1000 NS Inj 1,000 ML @ 100 mls/hr IV 1000 / 1000 1000 / 1000 .CONT .Q10H [facility] Rx#:[id number] Rocephin Inj 1,000 MG In NS Inj 100 / 100 100 ML @ 200 mls/hr IV.SIG Q24H [facility] Rx#:[id number] Oral 480 / 480 480 / 480 Output: Urine Amount (Catheter) 1000 / 1000 500 / 500 Indwelling Urethral Catheter 1000 / 1000 500 / 500 Other: Date of Last Bowel Movement 04/05/18 04/05/18 # Bowel Movements 1 Results - Labs CBC & Chem 7: 04/07/18 04:35 04/07/18 04:35 Labs: Laboratory Results - last 24 hr 04/06/18 04/06/18 04/06/18 11:36 11:36 11:36 WBC 12.1 H RBC 2.83 L Hgb 9.7 L Hct 28.8 L MCV 101.6 H MCH 34.3 H MCHC 33.7 RDW 13.7 Plt Count 347 MPV 7.9 Sodium 143 Potassium 4.2 D Chloride 110 H Carbon Dioxide 22.6 Anion Gap 10 BUN 66 H Creatinine 4.95 H Estimated GFR 8 L Random Glucose 109 H Calcium 10.3 H D Total Protein (PEP) 5.8 L Urine Color Urine Clarity Urine pH Ur Specific [place] Urine Protein Urine Glucose (UA) Urine Ketones Urine Occult Blood Urine Nitrate Urine Bilirubin Urine Urobilinogen Ur Leukocyte Esterase Urine RBC Urine WBC Urine Mucus Micro UA Comment Urine Culture Comments Ur Random Creatinine 04/06/18 04/06/18 04/07/18 15:25 15:25 04:35 WBC 11.4 H RBC 2.79 L Hgb 9.6 L Hct 28.4 L MCV 101.8 H MCH 34.4 H MCHC 33.8 RDW 13.7 Plt Count 362 MPV 7.9 Sodium Potassium Chloride Carbon Dioxide Anion Gap BUN Creatinine Estimated GFR Random Glucose Calcium Total Protein (PEP) Urine Color Straw Urine Clarity Clear Urine pH 7.0 Ur Specific [place] 1.009 Urine Protein Negative Urine Glucose (UA) 50 Urine Ketones Negative Urine Occult Blood Negative Urine Nitrate Negative Urine Bilirubin Negative Urine Urobilinogen Less than 2 Ur Leukocyte Esterase Negative Urine RBC 3 Urine WBC 1 Urine Mucus Few H Micro UA Comment Cath-culture not ind Urine Culture Comments Cath-cult not ind Ur Random Creatinine 36 04/07/18 04:35 WBC RBC Hgb Hct MCV MCH MCHC RDW Plt Count MPV Sodium 141 Potassium 3.6 Chloride 110 H Carbon Dioxide 21.0 Anion Gap 10 BUN 50 H Creatinine 4.28 H Estimated GFR 10 L Random Glucose 83 Calcium 9.1 D Total Protein (PEP) Urine Color Urine Clarity Urine pH Ur Specific [place] Urine Protein Urine Glucose (UA) Urine Ketones Urine Occult Blood Urine Nitrate Urine Bilirubin Urine Urobilinogen Ur Leukocyte Esterase Urine RBC Urine WBC Urine Mucus Micro UA Comment Urine Culture Comments Ur Random Creatinine - Imaging Impressions Abdomen/Bladder Ultrasound 04/06/18 00:00 CONCLUSION: 1. Redemonstration of numerous bilateral renal calyceal calculi similar to recent CT exam. 2. No hydronephrosis. 3. Small left renal cysts. Assessment and Plan (1) Anemia Status: Acute Code(s): D64.9 - Anemia, unspecified (2) Chronic diarrhea Status: Acute Code(s): K52.9 - Noninfective gastroenteritis and colitis, unspecified (3) Ileus, unspecified Status: Acute Code(s): K56.7 - Ileus, unspecified - Plan Mild ileus seen on 04/05/2018 CT scan. Patient also notes left upper quadrant discomfort to my light palpation. Abdominal and bladder ultrasound showed numerous renal calculi. Uncontrolled diarrhea onset of symptoms at least one month may be a little longer. Stool studies were done per Dr. Thomas approximately 2 weeks ago and C. difficile is negative on admission. Has been denies any constipation but does note occasional blood when patient wipes vigorously with toilet paper. He began using baby wipes and that has to gradually improve. Uncontrolled diarrhea could be related to ileus versus medications versus inflammatory process versus infection Anemia could be acute on chronic, will need to watch for any obvious bleeding EGD colonoscopy were done along time ago unknown timing. Or findings. Hemoglobin 9.6 WBC count 11.4 leukocytosis unspecified, lipase 138, bilirubin and LFTs normal Occasional nausea and does vomit up mucus at times. Patient does have a history of Alzheimer's dementia so her swallow was evaluated this admission. Patient was recommended for pured foods and thin liquids which she appears to be tolerating. We will continue medications and conservative treatment, no plan for procedures for now unless patient becomes unstable Plan Diet pured with thin liquids Add Pepcid 40 mg. po BID Questran every 8 hours Lactobacillus iron profile, ferritin labs folate, B12, IV hydration Hemoccult stool Frequent recommendations to follow Patient was seen per Dr. Muir and myself, note was written on his behalf
[2018-04-07] MEDS ORDERED: Famotidine 20 MG Tablet PO SCH (11:30)
--- NOTE | 2018-04-07 13:26 | P.PNIM ---
Subjective Interval history: Discussed with the patient's daughter at bedside. Doing okay. No new issues. Physical Exam Vital signs: Vital Signs 04/06/18 14:00 04/06/18 15:00 04/06/18 16:00 Temperature 98.4 F Pulse Rate 76 72 76 Respiratory Rate 16 Blood Pressure 143/70 H Pulse Oximetry 96 04/06/18 17:00 04/06/18 18:00 04/06/18 19:00 Temperature Pulse Rate 68 74 76 Respiratory Rate Blood Pressure Pulse Oximetry 04/06/18 20:00 04/06/18 21:00 04/06/18 22:00 Temperature 99.3 F Pulse Rate 72 66 72 Respiratory Rate 16 Blood Pressure 175/94 H Pulse Oximetry 95 04/06/18 23:00 04/07/18 00:00 04/07/18 01:00 Temperature Pulse Rate 66 69 70 Respiratory Rate 16 Blood Pressure 171/86 H Pulse Oximetry 98 04/07/18 02:00 04/07/18 03:00 04/07/18 04:00 Temperature Pulse Rate 72 74 64 Respiratory Rate 16 Blood Pressure Pulse Oximetry 96 04/07/18 05:00 04/07/18 06:00 04/07/18 08:00 Temperature 98.0 F Pulse Rate 60 66 71 Respiratory Rate 18 Blood Pressure Pulse Oximetry 96 04/07/18 12:00 Temperature 97.7 F Pulse Rate 61 Respiratory Rate 18 Blood Pressure 161/82 H Pulse Oximetry 96 Intake & Output 04/06/18 04/07/18 04/07/18 18:59 06:59 18:59 Intake Total 1580 / 1580 1480 / 1480 100 / 100 Output Total 1000 / 1000 500 / 500 Balance 580 / 580 980 / 980 100 / 100 Weight 39.5 kg Intake: IV 1100 / 1100 1000 / 1000 100 / 100 NS Inj 1,000 ML @ 100 mls/hr IV 1000 / 1000 1000 / 1000 .CONT .Q10H SAVANNA[facility] Rx#:[id number] Rocephin Inj 1,000 MG In NS Inj 100 / 100 100 / 100 100 ML @ 200 mls/hr IV.SIG Q24H S[facility]ANNA[facility] Rx#:[id number] Oral 480 / 480 480 / 480 Output: Urine Amount (Catheter) 1000 / 1000 500 / 500 Indwelling Urethral Catheter 1000 / 1000 500 / 500 Other: Date of Last Bowel Movement 04/05/18 04/05/18 04/05/18 # Bowel Movements 1 Narrative: GENERAL: Elderly female, demented. CARDIOVASCULAR: Normal rate and regular rhythm without murmurs, gallops, or rubs. RESPIRATORY:Breath sounds equal and clear to auscultation bilaterally. GASTROINTESTINAL: Abdomen soft, non-tender, non-distended. Normal active bowel sounds MUSCULOSKELETAL: Extremities without cyanosis, or edema. NEURO: Confused, generalized weakness, follow some commands. - Urinary Catheter Management Indwelling Urethral Catheter Cath placed during this visit: yes Reason for continuing: Hourly intake/output Insertion date: 04/05/18 Insertion time: 17:30 Results - Labs CBC & Chem 7: 04/07/18 04:35 04/07/18 04:35 Laboratory Results - last 24 hr 04/06/18 04/06/18 04/07/18 15:25 15:25 04:35 WBC 11.4 H RBC 2.79 L Hgb 9.6 L Hct 28.4 L MCV 101.8 H MCH 34.4 H MCHC 33.8 RDW 13.7 Plt Count 362 MPV 7.9 Sodium Potassium Chloride Carbon Dioxide Anion Gap BUN Creatinine Estimated GFR Random Glucose Calcium Urine Color Straw Urine Clarity Clear Urine pH 7.0 Ur Specific [place] 1.009 Urine Protein Negative Urine Glucose (UA) 50 Urine Ketones Negative Urine Occult Blood Negative Urine Nitrate Negative Urine Bilirubin Negative Urine Urobilinogen Less than 2 Ur Leukocyte Esterase Negative Urine RBC 3 Urine WBC 1 Urine Mucus Few H Micro UA Comment Cath-culture not ind Urine Culture Comments Cath-cult not ind Ur Random Creatinine 36 04/07/18 04:35 WBC RBC Hgb Hct MCV MCH MCHC RDW Plt Count MPV Sodium 141 Potassium 3.6 Chloride 110 H Carbon Dioxide 21.0 Anion Gap 10 BUN 50 H Creatinine 4.28 H Estimated GFR 10 L Random Glucose 83 Calcium 9.1 D Urine Color Urine Clarity Urine pH Ur Specific [place] Urine Protein Urine Glucose (UA) Urine Ketones Urine Occult Blood Urine Nitrate Urine Bilirubin Urine Urobilinogen Ur Leukocyte Esterase Urine RBC Urine WBC Urine Mucus Micro UA Comment Urine Culture Comments Ur Random Creatinine Microbiology 04/05/18 15:15 Clean Catch Urine Urine Culture - Final 10-50,000 cfu/mL mixed gram positive arlene (probable contaminants) - Imaging Impressions Abdomen/Bladder Ultrasound 04/06/18 00:00 CONCLUSION: 1. Redemonstration of numerous bilateral renal calyceal calculi similar to recent CT exam. 2. No hydronephrosis. 3. Small left renal cysts. Assessment and Plan - Assessment (1) Acute renal failure Code(s): N17.9 - Acute kidney failure, unspecified Status: Acute (2) Acute hyperkalemia Code(s): E87.5 - Hyperkalemia Status: Acute (3) Hypercalcemia Code(s): E83.52 - Hypercalcemia Status: Acute (4) Hypermagnesemia Code(s): E83.41 - Hypermagnesemia Status: Acute (5) Chronic diarrhea Code(s): K52.9 - Noninfective gastroenteritis and colitis, unspecified Status : Acute (6) Severe dehydration Code(s): E86.0 - Dehydration Status: Acute - Plan 83-year-old female admitted with acute renal failure and multiple electrolyte abnormalities likely secondary to dehydration from chronic diarrhea over the past 1+ month. Patient also with evidence of urinary tract infection. Acute renal failure: Secondary to prerenal azotemia from severe dehydration. - Appreciate nephrology following. -Continue IV hydration. Avoid nephrotoxins. - Follow renal functions daily. Slight improvement. Chronic diarrhea: This has been ongoing for at least the past month. Follows outpatient with Dr. Thomas. It does not appear she is able to maintain her fluid balance. -C. difficile negative. stool for culture, ova and parasites pending. -GI following. Pepcid and Questran added. Multiple electrolytes abnormalities including hypercalcemia, hypermagnesemia, high phosphate. Secondary to severe dehydration. - Continue IV hydration. Follow trend. Abnormal urinalysis: Patient treated empirically with Rocephin. Urine cultures negative. Discontinue antibiotics.. Continue chronic medications for hypothyroidism and dementia. GI prophylaxis: PPI. Stool softener PRN constipation. DVT PPx: SCDs
[2018-04-07] MEDS ORDERED: metroNIDAZOLE 500 MG Tablet PO SCH (14:00)
[2018-04-07 15:08] LABS: % Iron Saturation 29.4 % (20-50)
[2018-04-07 15:34] LABS: Vitamin B12 1898 pg/mL (193-986)
[2018-04-07] MEDS: Famotidine 20 MG Tablet PO SCH (23:00)
[2018-04-08] MEDS: Sod Chloride 0.9% Inj 1,000 ML IV.CONT SCH ×3 (04:27→16:53)
[2018-04-08] MEDS: Levothyroxine 75 MCG Tablet PO SCH (08:39)
[2018-04-08] MEDS: Famotidine 20 MG Tablet PO SCH ×2 (09:56→21:07)
[2018-04-08] MEDS: Potassium Chloride 10 MEQ ER Capsule PO SCH ×2 (09:56→21:06)
--- NOTE | 2018-04-08 10:40 | P.PNNP ---
Subjective Interval history: Lying in bed. Not in distress. at bedside. Pending labs from today. IVF infusing. She is non oliguric. Physical Exam Vital signs: Vital Signs 04/07/18 11:00 04/07/18 12:00 04/07/18 13:00 Temperature 97.7 F Pulse Rate 64 56 L 66 Respiratory Rate 18 Blood Pressure 161/82 H Pulse Oximetry 96 04/07/18 14:00 04/07/18 15:00 04/07/18 16:00 Temperature 97.4 F L Pulse Rate 72 69 74 Respiratory Rate 18 Blood Pressure 121/52 L Pulse Oximetry 96 04/07/18 17:00 04/07/18 18:00 04/07/18 19:00 Temperature Pulse Rate 68 80 72 Respiratory Rate Blood Pressure Pulse Oximetry 04/07/18 20:00 04/07/18 21:00 04/07/18 22:00 Temperature Pulse Rate 70 62 78 Respiratory Rate Blood Pressure Pulse Oximetry 04/07/18 23:00 04/07/18 23:24 04/08/18 01:00 Temperature Pulse Rate 58 L 63 58 L Respiratory Rate 16 Blood Pressure 174/79 H Pulse Oximetry 97 04/08/18 02:00 04/08/18 03:00 04/08/18 04:00 Temperature Pulse Rate 68 64 52 L Respiratory Rate 18 Blood Pressure Pulse Oximetry 98 04/08/18 07:00 04/08/18 08:00 Temperature 99.1 F Pulse Rate 65 66 Respiratory Rate 18 Blood Pressure 141/73 H Pulse Oximetry 96 Intake & Output 04/07/18 04/08/18 04/08/18 18:59 06:59 18:59 Intake Total 2060 / 2060 2480 / 2480 Output Total 1000 / 1000 900 / 900 Balance 1060 / 1060 1580 / 1580 Weight 44.5 kg Intake: IV 1100 / 1100 1999 / 1999 NS Inj 1,000 ML @ 100 mls/hr IV 1000 / 1000 1999 / 1999 .CONT .Q10H [facility] Rx#:[id number] Rocephin Inj 1,000 MG In NS Inj 100 / 100 100 ML @ 200 mls/hr IV.SIG Q24H [facility]ANNA[facility] Rx#:[id number] Oral 960 / 960 480 / 480 Output: Urine 1000 / 1000 450 / 450 Urine Amount (Catheter) 450 / 450 Indwelling Urethral Catheter 450 / 450 Other: Date of Last Bowel Movement 04/05/18 04/05/18 04/08/18 - Constitutional no acute distress, cooperative - Routine HEENT Exam Head: Present: normocephalic - Routine Neck Exam Present: supple, full ROM - Routine Respiratory Exam Present: CTA bilaterally. Absent: accessory muscle use - Routine Cardiovascular Exam Present: RRR, S1, S2. Absent: murmur - Routine Abdominal Exam Present: soft, normoactive bowel sounds - Routine Extremities Exam Present: full ROM, pulses intact, normal capillary refill. Absent: edema - Routine Skin Exam Present: intact, dry, warm - Routine Neurological Exam Present: alert, CN II-XII intact, moving all extremities Hx dementia - Detailed Neurological Exam: Coma Scale Eye Opening: Spontaneous Verbal Response: Oriented Motor Response: Obey commands Andi Coma Scale Total: 15 - Routine Psychiatric Exam Present: unable to assess - Urinary Catheter Management Indwelling Urethral Catheter Cath placed during this visit: yes Reason for continuing: Hourly intake/output Insertion date: 04/05/18 Insertion time: 17:30 Assessment and Plan - Assessment (1) Acute renal failure Code(s): N17.9 - Acute kidney failure, unspecified Status: Acute Plan: Baseline creatinine of 1.1 from December at [facility]. ASHWINI most likely prerenal azotemia, and intravascular volume depletion from diarrhea. Awaiting repeat labs from today. Continue IVF. (NS at 100cc/hour). She is non oliguric. Remove mckee catheter in 1-2 days. Renal ultrasound and CT with non-obstructive renal stones, no intervention required, monitor. PO fluids encouraged. Avoid nephrotoxins. (2) Acute hyperkalemia Code(s): E87.5 - Hyperkalemia Status: Acute Plan: Improved, monitor. Continue to hold ARB as well as her home potassium supplementation for now. (3) Hypercalcemia Code(s): E83.52 - Hypercalcemia Status: Acute Plan: Improved with IVFs. SPEP and UPEP results pending. (4) Alzheimer disease Code(s): G30.9 - Alzheimer's disease, unspecified; F02.80 - Dementia in other diseases classified elsewhere without behavioral disturbance Status: Acute Plan: continue supportive care (5) Hypothyroidism Code(s): E03.9 - Hypothyroidism, unspecified Status: Acute Plan: continue Synthroid
[2018-04-08 12:09] LABS: Hematocrit 26.2 % (35.0-46.0); Mean Corpuscular HGB Conc 34.1 % (32.0-36.0); Mean Corpuscular Hemoglobin 34.8 pg (27.0-34.0); Mean Corpuscular Volume 101.8 fL (80.0-100.0); Mean Platelet Volume 7.5 fL (7.0-11.0); Platelet Count 321 th/mm3 (150-450); Red Blood Count 2.58 mil/mm3 (4.00-5.30); Red Cell Distribution Width 13.4 % (11.6-17.2); White Blood Count 9.9 th/mm3 (4.0-11.0)
[2018-04-08 12:37] LABS: Calcium 8.1 mg/dL (8.5-10.1); Carbon Dioxide 18.5 meq/L (21.0-32.0); Potassium 3.3 meq/L (3.5-5.1)
--- NOTE | 2018-04-08 13:24 | P.PNIM ---
Subjective Interval history: Patient reports she is doing okay. Discussed with at bedside. No bowel movement/diarrhea documented since yesterday. Physical Exam Vital signs: Vital Signs 04/07/18 14:00 04/07/18 15:00 04/07/18 16:00 Temperature 97.4 F L Pulse Rate 72 69 74 Respiratory Rate 18 Blood Pressure 121/52 L Pulse Oximetry 96 04/07/18 17:00 04/07/18 18:00 04/07/18 19:00 Temperature Pulse Rate 68 80 72 Respiratory Rate Blood Pressure Pulse Oximetry 04/07/18 20:00 04/07/18 21:00 04/07/18 22:00 Temperature Pulse Rate 70 62 78 Respiratory Rate Blood Pressure Pulse Oximetry 04/07/18 23:00 04/07/18 23:24 04/08/18 01:00 Temperature Pulse Rate 58 L 63 58 L Respiratory Rate 16 Blood Pressure 174/79 H Pulse Oximetry 97 04/08/18 02:00 04/08/18 03:00 04/08/18 04:00 Temperature Pulse Rate 68 64 52 L Respiratory Rate 18 Blood Pressure Pulse Oximetry 98 04/08/18 07:00 04/08/18 08:00 04/08/18 10:00 Temperature 99.1 F Pulse Rate 65 52 L 64 Respiratory Rate 18 Blood Pressure 141/73 H Pulse Oximetry 96 04/08/18 10:43 04/08/18 11:00 04/08/18 12:00 Temperature 98.5 F Pulse Rate 56 L 70 60 Respiratory Rate 16 Blood Pressure 115/55 L Pulse Oximetry 94 L 04/08/18 13:00 Temperature Pulse Rate 56 L Respiratory Rate Blood Pressure Pulse Oximetry Intake & Output 04/07/18 04/08/18 04/08/18 18:59 06:59 18:59 Intake Total 2060 / 2060 2480 / 2480 100 / 100 Output Total 1000 / 1000 900 / 900 Balance 1060 / 1060 1580 / 1580 100 / 100 Weight 44.5 kg Intake: IV 1100 / 1100 1999 / 1999 100 / 100 NS Inj 1,000 ML @ 100 mls/hr IV 1000 / 1000 1999 / 1999 .CONT .Q10H SAVANNA[facility] Rx#:[id number] Rocephin Inj 1,000 MG In NS Inj 100 / 100 100 / 100 100 ML @ 200 mls/hr IV.SIG Q24H SAVANNA[facility] Rx#:[id number] Oral 960 / 960 480 / 480 Output: Urine 1000 / 1000 450 / 450 Urine Amount (Catheter) 450 / 450 Indwelling Urethral Catheter 450 / 450 Other: Date of Last Bowel Movement 04/05/18 04/05/18 04/08/18 Narrative: GENERAL: Elderly female, demented. CARDIOVASCULAR: Normal rate and regular rhythm without murmurs, gallops, or rubs. RESPIRATORY:Breath sounds equal and clear to auscultation bilaterally. GASTROINTESTINAL: Abdomen soft, non-tender, non-distended. Normal active bowel sounds MUSCULOSKELETAL: Extremities without cyanosis, or edema. NEURO: Confused, generalized weakness, follow some commands. - Urinary Catheter Management Indwelling Urethral Catheter Cath placed during this visit: yes Reason for continuing: Hourly intake/output Insertion date: 04/05/18 Insertion time: 17:30 Results - Labs CBC & Chem 7: 04/08/18 11:20 04/08/18 11:20 Laboratory Results - last 24 hr 04/07/18 04/07/18 04/07/18 14:30 14:30 18:00 WBC RBC Hgb Hct MCV MCH MCHC RDW Plt Count MPV Sodium Potassium Chloride Carbon Dioxide Anion Gap BUN Creatinine Estimated GFR Random Glucose Calcium Iron 75 TIBC 255 % Saturation 29.4 Ferritin 76 Vitamin B12 1898 H Folate Greater than 20.0 H Ur 24 Hour Volume 1000 Ur Total Protein 24 Hr 54 04/08/18 04/08/18 11:20 11:20 WBC 9.9 RBC 2.58 L Hgb 9.0 L Hct 26.2 L MCV 101.8 H MCH 34.8 H MCHC 34.1 RDW 13.4 Plt Count 321 MPV 7.5 Sodium 140 Potassium 3.3 L Chloride 110 H Carbon Dioxide 18.5 L Anion Gap 12 BUN 36 H Creatinine 3.27 H Estimated GFR 14 L Random Glucose 87 Calcium 8.1 L D Iron TIBC % Saturation Ferritin Vitamin B12 Folate Ur 24 Hour Volume Ur Total Protein 24 Hr Microbiology 04/08/18 07:14 Stool Occult Blood - Final Hemoccult negative 04/05/18 15:15 Clean Catch Urine Urine Culture - Final 10-50,000 cfu/mL mixed gram positive arlene (probable contaminants) Assessment and Plan - Assessment (1) Acute renal failure Code(s): N17.9 - Acute kidney failure, unspecified Status: Acute (2) Acute hyperkalemia Code(s): E87.5 - Hyperkalemia Status: Acute (3) Hypercalcemia Code(s): E83.52 - Hypercalcemia Status: Acute (4) Hypermagnesemia Code(s): E83.41 - Hypermagnesemia Status: Acute (5) Chronic diarrhea Code(s): K52.9 - Noninfective gastroenteritis and colitis, unspecified Status : Acute (6) Severe dehydration Code(s): E86.0 - Dehydration Status: Acute - Plan 83-year-old female admitted with acute renal failure and multiple electrolyte abnormalities likely secondary to dehydration from chronic diarrhea over the past 1+ month. Patient also with evidence of urinary tract infection. Acute renal failure: Secondary to prerenal azotemia from severe dehydration. - Appreciate nephrology following. -Continue IV hydration. Avoid nephrotoxins. - Follow renal functions daily. Improving. Chronic diarrhea: This has been ongoing for at least the past month. Follows outpatient with Dr. Thomas. It does not appear she is able to maintain her fluid balance. -C. difficile negative. stool culture so far negative for enteric pathogens. -GI following. Pepcid and Questran added. -Diarrhea seems to be resolving. Multiple electrolytes abnormalities including hypercalcemia, hypermagnesemia, high phosphate. Secondary to severe dehydration. - Continue IV hydration. Follow trend. Abnormal urinalysis: Patient treated empirically with Rocephin. Urine cultures negative. Discontinue antibiotics.. Continue chronic medications for hypothyroidism and dementia. GI prophylaxis: PPI. Stool softener PRN constipation. DVT PPx: SCDs Discharge Planning: Anticipate discharge soon if renal function continues to improve and she is able to maintain hydration. Diarrhea seems to be resolving.
--- NOTE | 2018-04-08 18:32 | P.PNGI ---
Subjective Interval history: Patient is resting in the bed and appears more alert today has been is in the room <Rosmery Haq M - Last Filed: 04/08/18 18:26> Physical Exam Vital signs: Vital Signs 04/07/18 19:00 04/07/18 20:00 04/07/18 21:00 Temperature Pulse Rate 72 70 62 Respiratory Rate Blood Pressure Pulse Oximetry 04/07/18 22:00 04/07/18 23:00 04/07/18 23:24 Temperature Pulse Rate 78 58 L 63 Respiratory Rate 16 Blood Pressure 174/79 H Pulse Oximetry 97 04/08/18 01:00 04/08/18 02:00 04/08/18 03:00 Temperature Pulse Rate 58 L 68 64 Respiratory Rate Blood Pressure Pulse Oximetry 04/08/18 04:00 04/08/18 07:00 04/08/18 08:00 Temperature 99.1 F Pulse Rate 52 L 65 52 L Respiratory Rate 18 18 Blood Pressure 141/73 H Pulse Oximetry 98 96 04/08/18 10:00 04/08/18 10:43 04/08/18 11:00 Temperature Pulse Rate 64 56 L 70 Respiratory Rate Blood Pressure Pulse Oximetry 04/08/18 12:00 04/08/18 13:00 04/08/18 14:00 Temperature 98.5 F Pulse Rate 60 56 L 73 Respiratory Rate 16 Blood Pressure 115/55 L Pulse Oximetry 94 L 04/08/18 15:00 04/08/18 15:30 04/08/18 16:00 Temperature 98.2 F Pulse Rate 67 67 62 Respiratory Rate 20 18 Blood Pressure 123/57 L Pulse Oximetry 95 04/08/18 17:00 04/08/18 18:00 Temperature Pulse Rate 64 68 Respiratory Rate Blood Pressure Pulse Oximetry Intake & Output 04/07/18 04/08/18 04/08/18 18:59 06:59 18:59 Intake Total 2060 / 2060 2480 / 2480 1820 / 1820 Output Total 1000 / 1000 900 / 900 800 / 800 Balance 1060 / 1060 1580 / 1580 1020 / 1020 Weight 44.5 kg Intake: IV 1100 / 1100 1999 / 1999 1100 / 1100 NS Inj 1,000 ML @ 60 mls/hr IV. 1000 / 1000 1999 / 1999 1000 / 1000 CONT .[id number] [facility] Rx#: [id number] Rocephin Inj 1,000 MG In NS Inj 100 / 100 100 / 100 100 ML @ 200 mls/hr IV.SIG Q24H [facility] Rx#:[id number] Oral 960 / 960 480 / 480 720 / 720 Output: Urine 1000 / 1000 450 / 450 Urine Amount (Catheter) 450 / 450 800 / 800 Indwelling Urethral Catheter 450 / 450 800 / 800 Other: Date of Last Bowel Movement 04/05/18 04/05/18 04/08/18 - Constitutional no acute distress, thin, chronically ill appearing - Routine HEENT Exam Head: Present: normocephalic ENT: Present: mucous membranes moist - Routine Respiratory Exam Present: accessory muscle use (No shortness of breath respirations even and unlabored) - Routine Cardiovascular Exam Present: S1, S2 - Routine Abdominal Exam Present: soft, normoactive bowel sounds (No abdominal pain) - Routine Skin Exam Present: pallor - Routine Neurological Exam Present: alert (Awake) - Urinary Catheter Management Indwelling Urethral Catheter Cath placed during this visit: yes Reason for continuing: Hourly intake/output Insertion date: 04/05/18 Insertion time: 17:30 <Rosmery Haq - Last Filed: 04/08/18 18:26> Vital signs: Vital Signs 04/07/18 20:00 04/07/18 21:00 04/07/18 22:00 Temperature Pulse Rate 70 62 78 Respiratory Rate Blood Pressure Pulse Oximetry 04/07/18 23:00 04/07/18 23:24 04/08/18 01:00 Temperature Pulse Rate 58 L 63 58 L Respiratory Rate 16 Blood Pressure 174/79 H Pulse Oximetry 97 04/08/18 02:00 04/08/18 03:00 04/08/18 04:00 Temperature Pulse Rate 68 64 52 L Respiratory Rate 18 Blood Pressure Pulse Oximetry 98 04/08/18 07:00 04/08/18 08:00 04/08/18 10:00 Temperature 99.1 F Pulse Rate 65 52 L 64 Respiratory Rate 18 Blood Pressure 141/73 H Pulse Oximetry 96 04/08/18 10:43 04/08/18 11:00 04/08/18 12:00 Temperature 98.5 F Pulse Rate 56 L 70 60 Respiratory Rate 16 Blood Pressure 115/55 L Pulse Oximetry 94 L 04/08/18 13:00 04/08/18 14:00 04/08/18 15:00 Temperature Pulse Rate 56 L 73 67 Respiratory Rate Blood Pressure Pulse Oximetry 04/08/18 15:30 04/08/18 16:00 04/08/18 17:00 Temperature 98.2 F Pulse Rate 67 62 64 Respiratory Rate 20 18 Blood Pressure 123/57 L Pulse Oximetry 95 04/08/18 18:00 Temperature Pulse Rate 68 Respiratory Rate Blood Pressure Pulse Oximetry Intake & Output 04/08/18 04/08/18 04/09/18 06:59 18:59 06:59 Intake Total 2480 / 2480 1820 / 1820 Output Total 900 / 900 800 / 800 Balance 1580 / 1580 1020 / 1020 Weight 44.5 kg Intake: IV 1999 1100 / 1100 NS Inj 1,000 ML @ 60 mls/hr IV. 1999 / 1999 1000 / 1000 CONT .[id number] [facility] Rx#: [id number] Rocephin Inj 1,000 MG In NS Inj 100 / 100 100 ML @ 200 mls/hr IV.SIG Q24H [facility] Rx#:[id number] Oral 480 / 480 720 / 720 Output: Urine 450 / 450 Urine Amount (Catheter) 450 / 450 800 / 800 Indwelling Urethral Catheter 450 / 450 800 / 800 Other: Date of Last Bowel Movement 04/05/18 04/08/18 - Urinary Catheter Management Indwelling Urethral Catheter Cath placed during this visit: no <Matthias Swan E - Last Filed: 04/08/18 19:24> Results - Labs CBC & Chem 7: 04/08/18 11:20 04/08/18 11:20 Laboratory Results - last 24 hr 04/07/18 04/08/18 04/08/18 18:00 11:20 11:20 WBC 9.9 RBC 2.58 L Hgb 9.0 L Hct 26.2 L MCV 101.8 H MCH 34.8 H MCHC 34.1 RDW 13.4 Plt Count 321 MPV 7.5 Sodium 140 Potassium 3.3 L Chloride 110 H Carbon Dioxide 18.5 L Anion Gap 12 BUN 36 H Creatinine 3.27 H Estimated GFR 14 L Random Glucose 87 Calcium 8.1 L D Ur 24 Hour Volume 1000 Ur Total Protein 24 Hr 54 Microbiology 04/08/18 07:14 Stool Stool for WBCs - Final No WBC's seen 04/08/18 07:14 Stool Cryptosporidium Antigen - Final Negative - No Cryptosporicium antigen detected In selected cases of patients with a history of immunosuppression or foreign travel, a full ova and parasites examination may be desired. Contact the microbiology lab if full workup is indicated and subit another specimen for testing. 04/08/18 07:14 Stool Giardia Antigen (ALBINO) - Final Negative - No Giardia Antigen detected In selected cases of patients with a history of immunosuppression or foreign travel, a full ova and parasites examination may be desired. Contact the microbiology lab if full workup is indicated and subit another specimen for testing. 04/08/18 07:14 Stool Enteric Pathogens (PCR) - Final No enteric pathogens detected by PCR (No Salmonella sp., Shigella sp., Campylobacter sp., Yersinia enterocolitica, Vibrio sp., Norovirus, or EHEC (Shiga Toxin 1 or Shiga Toxin 2) detected. 04/08/18 07:14 Stool Occult Blood - Final Hemoccult negative <Rosmery Haq - Last Filed: 04/08/18 18:26> - Labs CBC & Chem 7: 04/08/18 11:20 04/08/18 11:20 Laboratory Results - last 24 hr 04/08/18 04/08/18 11:20 11:20 WBC 9.9 RBC 2.58 L Hgb 9.0 L Hct 26.2 L MCV 101.8 H MCH 34.8 H MCHC 34.1 RDW 13.4 Plt Count 321 MPV 7.5 Sodium 140 Potassium 3.3 L Chloride 110 H Carbon Dioxide 18.5 L Anion Gap 12 BUN 36 H Creatinine 3.27 H Estimated GFR 14 L Random Glucose 87 Calcium 8.1 L D Microbiology 04/08/18 07:14 Stool Stool for WBCs - Final No WBC's seen 04/08/18 07:14 Stool Cryptosporidium Antigen - Final Negative - No Cryptosporicium antigen detected In selected cases of patients with a history of immunosuppression or foreign travel, a full ova and parasites examination may be desired. Contact the microbiology lab if full workup is indicated and subit another specimen for testing. 04/08/18 07:14 Stool Giardia Antigen (ALBINO) - Final Negative - No Giardia Antigen detected In selected cases of patients with a history of immunosuppression or foreign travel, a full ova and parasites examination may be desired. Contact the microbiology lab if full workup is indicated and subit another specimen for testing. 04/08/18 07:14 Stool Enteric Pathogens (PCR) - Final No enteric pathogens detected by PCR (No Salmonella sp., Shigella sp., Campylobacter sp., Yersinia enterocolitica, Vibrio sp., Norovirus, or EHEC (Shiga Toxin 1 or Shiga Toxin 2) detected. 04/08/18 07:14 Stool Occult Blood - Final Hemoccult negative <Matthias Swan - Last Filed: 04/08/18 19:24> Assessment and Plan (1) Anemia Status: Acute Code(s): D64.9 - Anemia, unspecified (2) Chronic diarrhea Status: Acute Code(s): K52.9 - Noninfective gastroenteritis and colitis, unspecified (3) Ileus, unspecified Status: Acute Code(s): K56.7 - Ileus, unspecified - Plan Mild ileus seen on 04/05/2018 CT scan. Patient also notes left upper quadrant discomfort to my light palpation. Abdominal and bladder ultrasound showed numerous renal calculi. Uncontrolled diarrhea onset of symptoms at least one month may be a little longer. Stool studies were done per Dr. Thomas approximately 2 weeks ago and C. difficile is negative on admission. Has been denies any constipation but does note occasional blood when patient wipes vigorously with toilet paper. He began using baby wipes and that has to gradually improve. Uncontrolled diarrhea could be related to ileus versus medications versus inflammatory process versus infection Anemia could be acute on chronic, will need to watch for any obvious bleeding EGD colonoscopy were done along time ago unknown timing. Or findings. Hemoglobin 9.6 WBC count 11.4 leukocytosis unspecified, lipase 138, bilirubin and LFTs normal Occasional nausea and does vomit up mucus at times. Patient does have a history of Alzheimer's dementia so her swallow was evaluated this admission. Patient was recommended for pured foods and thin liquids which she appears to be tolerating. We will continue medications and conservative treatment, no plan for procedures for now unless patient becomes unstable 04/08/2018 patient appears to be feeling somewhat better and generalized color is pink. Staff notes no diarrhea over the past couple of days so cholestyramine had inhaled but patient did have loose stools today without any blood noted. Mild ileus was noted on original abdominal x-ray will recheck KUB in the morning. Anemia workup done. Patient is eating very minimal amounts of food according to but is drinking boost and supplements which could be causing her diarrhea. Plan Diet pured with thin liquids Pepcid Continue Questran Lactobacillus KUB in a.m. IV hydration continues Patient was seen per Dr. Swan and myself, note was written on his behalf <Rosmery Haq - Last Filed: 04/08/18 18:26> (1) Anemia Status: Acute Code(s): D64.9 - Anemia, unspecified (2) Chronic diarrhea Status: Acute Code(s): K52.9 - Noninfective gastroenteritis and colitis, unspecified (3) Ileus, unspecified Status: Acute Code(s): K56.7 - Ileus, unspecified - Attending Attestation Patient seen and examined Agree with above Continue with current supportive care Monitor labs <Matthias Swan - Last Filed: 04/08/18 19:24>
[2018-04-08] MEDS: Megestrol Acetate Liq 400 MG/10 ML UDC PO SCH (21:08)
[2018-04-09] MEDS: Levothyroxine 75 MCG Tablet PO SCH (05:46)
[2018-04-09] MEDS: Famotidine 20 MG Tablet PO SCH ×2 (08:32→21:06)
[2018-04-09] MEDS: Potassium Chloride 10 MEQ ER Capsule PO SCH ×2 (08:33→21:05)
[2018-04-09 08:37] LABS: Albumin 2.2 g/dL (3.4-5.0); Calcium 7.8 mg/dL (8.5-10.1); Carbon Dioxide 18.4 meq/L (21.0-32.0); Magnesium 1.6 mg/dL (1.5-2.5); Potassium 3.7 meq/L (3.5-5.1)
--- NOTE | 2018-04-09 11:16 | P.PNIM ---
Subjective Interval history: Patient is feeling better. Discussed with at bedside. No diarrhea. She is drinking more. Eating some. Physical Exam Vital signs: Vital Signs 04/08/18 12:00 04/08/18 13:00 04/08/18 14:00 Temperature 98.5 F Pulse Rate 60 56 L 73 Respiratory Rate 16 Blood Pressure 115/55 L Pulse Oximetry 94 L 04/08/18 15:00 04/08/18 15:30 04/08/18 16:00 Temperature 98.2 F Pulse Rate 67 67 62 Respiratory Rate 20 18 Blood Pressure 123/57 L Pulse Oximetry 95 04/08/18 17:00 04/08/18 18:00 04/08/18 19:00 Temperature Pulse Rate 64 68 60 Respiratory Rate Blood Pressure Pulse Oximetry 04/08/18 20:00 04/08/18 20:52 04/08/18 21:00 Temperature 98.1 F Pulse Rate 70 70 68 Respiratory Rate 17 Blood Pressure 136/66 Pulse Oximetry 95 04/08/18 22:00 04/08/18 23:00 04/08/18 23:11 Temperature 98.0 F Pulse Rate 62 60 74 Respiratory Rate 17 Blood Pressure 152/68 H Pulse Oximetry 96 04/09/18 00:00 04/09/18 01:00 04/09/18 02:00 Temperature Pulse Rate 54 L 72 58 L Respiratory Rate Blood Pressure Pulse Oximetry 04/09/18 02:30 04/09/18 03:00 04/09/18 04:00 Temperature 98.1 F Pulse Rate 66 64 Respiratory Rate 17 19 Blood Pressure 158/79 H Pulse Oximetry 97 04/09/18 05:00 04/09/18 06:00 04/09/18 07:00 Temperature 98.7 F Pulse Rate 62 82 65 Respiratory Rate 20 Blood Pressure 160/79 H Pulse Oximetry 96 04/09/18 08:00 04/09/18 09:00 04/09/18 10:00 Temperature Pulse Rate 79 72 67 Respiratory Rate Blood Pressure Pulse Oximetry Intake & Output 04/08/18 04/09/18 04/09/18 18:59 06:59 18:59 Intake Total 1820 / 1820 400 / 400 100 / 100 Output Total 800 / 800 900 / 900 Balance 1020 / 1020 -500 / -500 100 / 100 Weight 42 kg Intake: IV 1100 / 1100 100 / 100 NS Inj 1,000 ML @ 60 mls/hr IV. 1000 / 1000 CONT .[id number] [facility] Rx#: [id number] Rocephin Inj 1,000 MG In NS Inj 100 / 100 100 / 100 100 ML @ 200 mls/hr IV.SIG Q24H [facility] Rx#:[id number] Oral 720 / 720 400 / 400 Output: Urine Amount (Catheter) 800 / 800 900 / 900 Indwelling Urethral Catheter 800 / 800 900 / 900 Other: Date of Last Bowel Movement 04/08/18 04/09/18 04/09/18 Narrative: GENERAL: Elderly female, demented. CARDIOVASCULAR: Normal rate and regular rhythm without murmurs, gallops, or rubs. RESPIRATORY:Breath sounds equal and clear to auscultation bilaterally. GASTROINTESTINAL: Abdomen soft, non-tender, non-distended. Normal active bowel sounds MUSCULOSKELETAL: Extremities without cyanosis, or edema. NEURO: Confused, generalized weakness, follow some commands. - Urinary Catheter Management Indwelling Urethral Catheter Cath placed during this visit: yes Reason for continuing: Hourly intake/output Insertion date: 04/05/18 Insertion time: 17:30 Results - Labs CBC & Chem 7: 04/08/18 11:20 04/09/18 06:54 Laboratory Results - last 24 hr 04/07/18 04/08/18 04/08/18 18:00 11:20 11:20 WBC 9.9 RBC 2.58 L Hgb 9.0 L Hct 26.2 L MCV 101.8 H MCH 34.8 H MCHC 34.1 RDW 13.4 Plt Count 321 MPV 7.5 Sodium 140 Potassium 3.3 L Chloride 110 H Carbon Dioxide 18.5 L Anion Gap 12 BUN 36 H Creatinine 3.27 H Estimated GFR 14 L Random Glucose 87 Calcium 8.1 L D Phosphorus Magnesium Albumin Ur Total Protein 24 Hr 536 H 04/09/18 06:54 WBC RBC Hgb Hct MCV MCH MCHC RDW Plt Count MPV Sodium 140 Potassium 3.7 Chloride 113 H Carbon Dioxide 18.4 L Anion Gap 9 BUN 27 H Creatinine 2.88 H Estimated GFR 16 L Random Glucose 81 Calcium 7.8 L Phosphorus 3.0 Magnesium 1.6 Albumin 2.2 L Ur Total Protein 24 Hr Microbiology 04/08/18 07:14 Stool Stool for WBCs - Final No WBC's seen 04/08/18 07:14 Stool Cryptosporidium Antigen - Final Negative - No Cryptosporicium antigen detected In selected cases of patients with a history of immunosuppression or foreign travel, a full ova and parasites examination may be desired. Contact the microbiology lab if full workup is indicated and subit another specimen for testing. 04/08/18 07:14 Stool Giardia Antigen (ALBINO) - Final Negative - No Giardia Antigen detected In selected cases of patients with a history of immunosuppression or foreign travel, a full ova and parasites examination may be desired. Contact the microbiology lab if full workup is indicated and subit another specimen for testing. 04/08/18 07:14 Stool Enteric Pathogens (PCR) - Final No enteric pathogens detected by PCR (No Salmonella sp., Shigella sp., Campylobacter sp., Yersinia enterocolitica, Vibrio sp., Norovirus, or EHEC (Shiga Toxin 1 or Shiga Toxin 2) detected. 04/08/18 07:14 Stool Occult Blood - Final Hemoccult negative Assessment and Plan - Assessment (1) Acute renal failure Code(s): N17.9 - Acute kidney failure, unspecified Status: Acute (2) Acute hyperkalemia Code(s): E87.5 - Hyperkalemia Status: Acute (3) Hypercalcemia Code(s): E83.52 - Hypercalcemia Status: Acute (4) Hypermagnesemia Code(s): E83.41 - Hypermagnesemia Status: Acute (5) Chronic diarrhea Code(s): K52.9 - Noninfective gastroenteritis and colitis, unspecified Status : Acute (6) Severe dehydration Code(s): E86.0 - Dehydration Status: Acute - Plan 83-year-old female admitted with acute renal failure and multiple electrolyte abnormalities likely secondary to dehydration from chronic diarrhea over the past 1+ month. Patient also presented with evidence of urinary tract infection. Acute renal failure: Secondary to prerenal azotemia from severe dehydration. - Appreciate nephrology following. -Continue IV hydration. Decreased per nephrology. Avoid nephrotoxins. - Follow renal functions daily. Improving. Chronic diarrhea: This has been ongoing for at least the past month. Follows outpatient with Dr. Thomas. It does not appear she is able to maintain her fluid balance. -C. difficile negative. stool culture so far negative for enteric pathogens. -GI following. Pepcid and Questran added. -Diarrhea resolved Multiple electrolytes abnormalities including hypercalcemia, hypermagnesemia, high phosphate. Secondary to severe dehydration. - Continue IV hydration. Follow trend. Abnormal urinalysis: Patient treated empirically with Rocephin. Urine cultures negative. Discontinue antibiotics.. Continue chronic medications for hypothyroidism and dementia. GI prophylaxis: PPI. Stool softener PRN constipation. DVT PPx: SCDs Discharge Planning: Anticipate discharge tomorrow if renal functions continued to improve.
[2018-04-09] MEDS: Sod Chloride 0.9% Inj 1,000 ML IV.CONT SCH ×2 (11:46→21:15)
--- NOTE | 2018-04-09 11:58 | P.PNGI ---
Subjective Interval history: Sitting up in the bed eyes open more alert today Participating and simple conversation in room Eating small amounts of pured food, frequent intervals BM soft, no watery diarrhea in the past 24 hours <Rosmery Haq M - Last Filed: 04/09/18 11:53> Physical Exam Vital signs: Vital Signs 04/08/18 12:00 04/08/18 13:00 04/08/18 14:00 Temperature 98.5 F Pulse Rate 60 56 L 73 Respiratory Rate 16 Blood Pressure 115/55 L Pulse Oximetry 94 L 04/08/18 15:00 04/08/18 15:30 04/08/18 16:00 Temperature 98.2 F Pulse Rate 67 67 62 Respiratory Rate 20 18 Blood Pressure 123/57 L Pulse Oximetry 95 04/08/18 17:00 04/08/18 18:00 04/08/18 19:00 Temperature Pulse Rate 64 68 60 Respiratory Rate Blood Pressure Pulse Oximetry 04/08/18 20:00 04/08/18 20:52 04/08/18 21:00 Temperature 98.1 F Pulse Rate 70 70 68 Respiratory Rate 17 Blood Pressure 136/66 Pulse Oximetry 95 04/08/18 22:00 04/08/18 23:00 04/08/18 23:11 Temperature 98.0 F Pulse Rate 62 60 74 Respiratory Rate 17 Blood Pressure 152/68 H Pulse Oximetry 96 04/09/18 00:00 04/09/18 01:00 04/09/18 02:00 Temperature Pulse Rate 54 L 72 58 L Respiratory Rate Blood Pressure Pulse Oximetry 04/09/18 02:30 04/09/18 03:00 04/09/18 04:00 Temperature 98.1 F Pulse Rate 66 64 Respiratory Rate 17 19 Blood Pressure 158/79 H Pulse Oximetry 97 04/09/18 05:00 04/09/18 06:00 04/09/18 07:00 Temperature 98.7 F Pulse Rate 62 82 65 Respiratory Rate 20 Blood Pressure 160/79 H Pulse Oximetry 96 04/09/18 08:00 04/09/18 09:00 04/09/18 10:00 Temperature Pulse Rate 79 72 67 Respiratory Rate Blood Pressure Pulse Oximetry 04/09/18 11:00 Temperature 99.1 F Pulse Rate 72 Respiratory Rate 18 Blood Pressure 131/63 Pulse Oximetry 95 Intake & Output 04/08/18 04/09/18 04/09/18 18:59 06:59 18:59 Intake Total 1820 / 1820 400 / 400 600 / 600 Output Total 800 / 800 900 / 900 Balance 1020 / 1020 -500 / -500 600 / 600 Weight 42 kg Intake: IV 1100 / 1100 600 / 600 NS Inj 1,000 ML @ 60 mls/hr IV. 1000 / 1000 500 / 500 CONT .[id number] SAVANNAH Rx#: [id number] Rocephin Inj 1,000 MG In NS Inj 100 / 100 100 / 100 100 ML @ 200 mls/hr IV.SIG Q24H SAVANNAH Rx#:[id number] Oral 720 / 720 400 / 400 Output: Urine Amount (Catheter) 800 / 800 900 / 900 Indwelling Urethral Catheter 800 / 800 900 / 900 Other: Date of Last Bowel Movement 04/08/18 04/09/18 04/09/18 - Constitutional no acute distress, chronically ill appearing - Routine HEENT Exam Head: Present: normocephalic ENT: Present: mucous membranes moist - Routine Respiratory Exam Present: accessory muscle use (No shortness of breath) - Routine Cardiovascular Exam Present: S1, S2 - Routine Abdominal Exam Present: soft (Round, no abdominal pain) - Urinary Catheter Management Indwelling Urethral Catheter Cath placed during this visit: yes Reason for continuing: Hourly intake/output Insertion date: 04/05/18 Insertion time: 17:30 <Rosmery Haq - Last Filed: 04/09/18 11:53> Vital signs: Vital Signs 04/08/18 19:00 04/08/18 20:00 04/08/18 20:52 Temperature 98.1 F Pulse Rate 60 70 70 Respiratory Rate 17 Blood Pressure 136/66 Pulse Oximetry 95 04/08/18 21:00 04/08/18 22:00 04/08/18 23:00 Temperature Pulse Rate 68 62 60 Respiratory Rate Blood Pressure Pulse Oximetry 04/08/18 23:11 04/09/18 00:00 04/09/18 01:00 Temperature 98.0 F Pulse Rate 74 54 L 72 Respiratory Rate 17 Blood Pressure 152/68 H Pulse Oximetry 96 04/09/18 02:00 04/09/18 02:30 04/09/18 03:00 Temperature 98.1 F Pulse Rate 58 L 66 Respiratory Rate 17 19 Blood Pressure 158/79 H Pulse Oximetry 97 04/09/18 04:00 04/09/18 05:00 04/09/18 06:00 Temperature Pulse Rate 64 62 82 Respiratory Rate Blood Pressure Pulse Oximetry 04/09/18 07:00 04/09/18 08:00 04/09/18 09:00 Temperature 98.7 F Pulse Rate 65 79 72 Respiratory Rate 20 Blood Pressure 160/79 H Pulse Oximetry 96 04/09/18 10:00 04/09/18 11:00 04/09/18 12:00 Temperature 99.1 F Pulse Rate 67 72 60 Respiratory Rate 18 Blood Pressure 131/63 Pulse Oximetry 95 04/09/18 13:00 04/09/18 14:00 04/09/18 15:00 Temperature 99 F Pulse Rate 75 63 63 Respiratory Rate 20 Blood Pressure 152/70 H Pulse Oximetry 96 04/09/18 16:00 04/09/18 17:00 04/09/18 18:00 Temperature Pulse Rate 59 L 58 L 73 Respiratory Rate Blood Pressure Pulse Oximetry Intake & Output 04/08/18 04/09/18 04/09/18 18:59 06:59 18:59 Intake Total 1820 / 1820 400 / 400 1560 / 1560 Output Total 800 / 800 900 / 900 1300 / 1300 Balance 1020 / 1020 -500 / -500 260 / 260 Weight 42 kg Intake: IV 1100 / 1100 600 / 600 NS Inj 1,000 ML @ 60 mls/hr IV. 1000 / 1000 500 / 500 CONT .[id number] SAVANNAH Rx#: [id number] Rocephin Inj 1,000 MG In NS Inj 100 / 100 100 / 100 100 ML @ 200 mls/hr IV.SIG Q24H S[facility]ANNA[facility] Rx#:[id number] Oral 720 / 720 400 / 400 960 / 960 Output: Urine Amount (Catheter) 800 / 800 900 / 900 1300 / 1300 Indwelling Urethral Catheter 800 / 800 900 / 900 1300 / 1300 Other: Date of Last Bowel Movement 04/08/18 04/09/18 04/09/18 - Urinary Catheter Management Indwelling Urethral Catheter Cath placed during this visit: no <Matthias Swan E - Last Filed: 04/09/18 18:57> Results - Labs CBC & Chem 7: 04/08/18 11:20 04/09/18 06:54 Laboratory Results - last 24 hr 04/07/18 04/08/18 04/08/18 18:00 11:20 11:20 WBC 9.9 RBC 2.58 L Hgb 9.0 L Hct 26.2 L MCV 101.8 H MCH 34.8 H MCHC 34.1 RDW 13.4 Plt Count 321 MPV 7.5 Sodium 140 Potassium 3.3 L Chloride 110 H Carbon Dioxide 18.5 L Anion Gap 12 BUN 36 H Creatinine 3.27 H Estimated GFR 14 L Random Glucose 87 Calcium 8.1 L D Phosphorus Magnesium Albumin Ur Total Protein 24 Hr 536 H 04/09/18 06:54 WBC RBC Hgb Hct MCV MCH MCHC RDW Plt Count MPV Sodium 140 Potassium 3.7 Chloride 113 H Carbon Dioxide 18.4 L Anion Gap 9 BUN 27 H Creatinine 2.88 H Estimated GFR 16 L Random Glucose 81 Calcium 7.8 L Phosphorus 3.0 Magnesium 1.6 Albumin 2.2 L Ur Total Protein 24 Hr Microbiology 04/08/18 07:14 Stool Stool for WBCs - Final No WBC's seen 04/08/18 07:14 Stool Cryptosporidium Antigen - Final Negative - No Cryptosporicium antigen detected In selected cases of patients with a history of immunosuppression or foreign travel, a full ova and parasites examination may be desired. Contact the microbiology lab if full workup is indicated and subit another specimen for testing. 04/08/18 07:14 Stool Giardia Antigen (ALBINO) - Final Negative - No Giardia Antigen detected In selected cases of patients with a history of immunosuppression or foreign travel, a full ova and parasites examination may be desired. Contact the microbiology lab if full workup is indicated and subit another specimen for testing. 04/08/18 07:14 Stool Enteric Pathogens (PCR) - Final No enteric pathogens detected by PCR (No Salmonella sp., Shigella sp., Campylobacter sp., Yersinia enterocolitica, Vibrio sp., Norovirus, or EHEC (Shiga Toxin 1 or Shiga Toxin 2) detected. 04/08/18 07:14 Stool Occult Blood - Final Hemoccult negative <Rosmery Haq - Last Filed: 04/09/18 11:53> - Labs CBC & Chem 7: 04/08/18 11:20 04/09/18 06:54 Laboratory Results - last 24 hr 04/06/18 04/07/18 04/09/18 11:36 18:00 06:54 Sodium 140 Potassium 3.7 Chloride 113 H Carbon Dioxide 18.4 L Anion Gap 9 BUN 27 H Creatinine 2.88 H Estimated GFR 16 L Random Glucose 81 Calcium 7.8 L Phosphorus 3.0 Magnesium 1.6 Albumin 2.2 L Albumin (PEP) 3.38 L Albumin/Globulin Ratio 1.40 Mpnkr-5-Tjskjuvft 0.24 Skifk-2-Ifqtmpeuz 0.79 Beta Globulins 0.71 Gamma Globulins 0.68 Ur Total Protein 24 Hr 536 H Microbiology 04/08/18 07:14 Stool Stool for WBCs - Final No WBC's seen 04/08/18 07:14 Stool Cryptosporidium Antigen - Final Negative - No Cryptosporicium antigen detected In selected cases of patients with a history of immunosuppression or foreign travel, a full ova and parasites examination may be desired. Contact the microbiology lab if full workup is indicated and subit another specimen for testing. 04/08/18 07:14 Stool Giardia Antigen (ALBINO) - Final Negative - No Giardia Antigen detected In selected cases of patients with a history of immunosuppression or foreign travel, a full ova and parasites examination may be desired. Contact the microbiology lab if full workup is indicated and subit another specimen for testing. - Imaging Impressions Abdomen X-Ray 04/09/18 08:00 CONCLUSION: Mild ileus. <Matthias Swan E - Last Filed: 04/09/18 18:57> Assessment and Plan (1) Anemia Status: Acute Code(s): D64.9 - Anemia, unspecified (2) Chronic diarrhea Status: Acute Code(s): K52.9 - Noninfective gastroenteritis and colitis, unspecified (3) Ileus, unspecified Status: Acute Code(s): K56.7 - Ileus, unspecified - Plan Mild ileus seen on 04/05/2018 CT scan. Patient also notes left upper quadrant discomfort to my light palpation. Abdominal and bladder ultrasound showed numerous renal calculi. Uncontrolled diarrhea onset of symptoms at least one month may be a little longer. Stool studies were done per Dr. Thomas approximately 2 weeks ago and C. difficile is negative on admission. Has been denies any constipation but does note occasional blood when patient wipes vigorously with toilet paper. He began using baby wipes and that has to gradually improve. Uncontrolled diarrhea could be related to ileus versus medications versus inflammatory process versus infection Anemia could be acute on chronic, will need to watch for any obvious bleeding EGD colonoscopy were done along time ago unknown timing. Or findings. Hemoglobin 9.6 WBC count 11.4 leukocytosis unspecified, lipase 138, bilirubin and LFTs normal Occasional nausea and does vomit up mucus at times. Patient does have a history of Alzheimer's dementia so her swallow was evaluated this admission. Patient was recommended for pured foods and thin liquids which she appears to be tolerating. We will continue medications and conservative treatment, no plan for procedures for now unless patient becomes unstable 04/08/2018 patient appears to be feeling somewhat better and generalized color is pink. Staff notes no diarrhea over the past couple of days so cholestyramine had inhaled but patient did have loose stools today without any blood noted. Mild ileus was noted on original abdominal x-ray will recheck KUB in the morning. Anemia workup done. Patient is eating very minimal amounts of food according to but is drinking boost and supplements which could be causing her diarrhea. 04/09/2018 patient continues to improve and now has no loose stools noted. Stool this a.m. was soft and forming. KUB is pending results. Currently patient has no nausea no vomiting hemoglobin was stable on 04/08/2018 at 9. From a GI perspective patient should be able to transition home and remain on probiotics and cholestyramine, and Pepcid. Also maintain diet pured with liquids. Labs show iron levels appear normal range. GI will follow as needed Plan Diet pured with thin liquids Pepcid Questran Lactobacillus Supportive care Patient was seen per Dr. Swan and myself, note was written on his behalf <Rosmery Haq - Last Filed: 04/09/18 11:53> (1) Anemia Status: Acute Code(s): D64.9 - Anemia, unspecified (2) Chronic diarrhea Status: Acute Code(s): K52.9 - Noninfective gastroenteritis and colitis, unspecified (3) Ileus, unspecified Status: Acute Code(s): K56.7 - Ileus, unspecified - Attending Attestation Patient seen and examined Agree with above Continue with current supportive care Monitor labs Seems to be improving Not much to add from a GI standpoint we will sign off <Matthias Swan E - Last Filed: 04/09/18 18:57>
--- NOTE | 2018-04-09 12:28 | XR ---
EXAM DATE: 04/09/2018 12:22 PM EDT AGE/SEX: 83 years / Female INDICATIONS: Abdominal pain. Diarrhea. CLINICAL DATA: This is the patient's subsequent encounter. Patient reports that signs and symptoms h ave been present for 4 - 6 days and indicates a pain score of 7/10. MEDICAL/SURGICAL HISTORY: Alzheimer's disease. Hypertension. Hysterectomy. COMPARISON: No prior exams available for comparison. FINDINGS: Mild ileus. No definite evidence for obstruction. Advanced degenerative change in the lower thoracic and lumbar spine with a rotatory levoscoliosis. CONCLUSION: Mild ileus. Electronically signed by: Pb Carrington MD 04/09/2018 12:27 PM EDT
--- NOTE | 2018-04-09 14:09 | P.PNNP ---
Subjective Interval history: Lying in bed. Not in distress. Renal function is better. <Aruna Weeks - Last Filed: 04/09/18 14:07> Physical Exam Vital signs: Vital Signs 04/08/18 15:00 04/08/18 15:30 04/08/18 16:00 Temperature 98.2 F Pulse Rate 67 67 62 Respiratory Rate 20 18 Blood Pressure 123/57 L Pulse Oximetry 95 04/08/18 17:00 04/08/18 18:00 04/08/18 19:00 Temperature Pulse Rate 64 68 60 Respiratory Rate Blood Pressure Pulse Oximetry 04/08/18 20:00 04/08/18 20:52 04/08/18 21:00 Temperature 98.1 F Pulse Rate 70 70 68 Respiratory Rate 17 Blood Pressure 136/66 Pulse Oximetry 95 04/08/18 22:00 04/08/18 23:00 04/08/18 23:11 Temperature 98.0 F Pulse Rate 62 60 74 Respiratory Rate 17 Blood Pressure 152/68 H Pulse Oximetry 96 04/09/18 00:00 04/09/18 01:00 04/09/18 02:00 Temperature Pulse Rate 54 L 72 58 L Respiratory Rate Blood Pressure Pulse Oximetry 04/09/18 02:30 04/09/18 03:00 04/09/18 04:00 Temperature 98.1 F Pulse Rate 66 64 Respiratory Rate 17 19 Blood Pressure 158/79 H Pulse Oximetry 97 04/09/18 05:00 04/09/18 06:00 04/09/18 07:00 Temperature 98.7 F Pulse Rate 62 82 65 Respiratory Rate 20 Blood Pressure 160/79 H Pulse Oximetry 96 04/09/18 08:00 04/09/18 09:00 04/09/18 10:00 Temperature Pulse Rate 79 72 67 Respiratory Rate Blood Pressure Pulse Oximetry 04/09/18 11:00 04/09/18 12:00 04/09/18 13:00 Temperature 99.1 F Pulse Rate 72 60 75 Respiratory Rate 18 Blood Pressure 131/63 Pulse Oximetry 95 04/09/18 14:00 Temperature Pulse Rate 63 Respiratory Rate Blood Pressure Pulse Oximetry Intake & Output 04/08/18 04/09/18 04/09/18 18:59 06:59 18:59 Intake Total 1820 / 1820 400 / 400 600 / 600 Output Total 800 / 800 900 / 900 Balance 1020 / 1020 -500 / -500 600 / 600 Weight 42 kg Intake: IV 1100 / 1100 600 / 600 NS Inj 1,000 ML @ 60 mls/hr IV. 1000 / 1000 500 / 500 CONT .[id number] SAVANNAH Rx#: [id number] Rocephin Inj 1,000 MG In NS Inj 100 / 100 100 / 100 100 ML @ 200 mls/hr IV.SIG Q24H SAVANNA[facility] Rx#:[id number] Oral 720 / 720 400 / 400 Output: Urine Amount (Catheter) 800 / 800 900 / 900 Indwelling Urethral Catheter 800 / 800 900 / 900 Other: Date of Last Bowel Movement 04/08/18 04/09/18 04/09/18 - Constitutional no acute distress, chronically ill appearing - Routine HEENT Exam Head: Present: normocephalic - Routine Neck Exam Present: supple, full ROM - Routine Respiratory Exam Present: CTA bilaterally. Absent: accessory muscle use - Routine Cardiovascular Exam Present: RRR, S1, S2 - Routine Abdominal Exam Present: soft, normoactive bowel sounds - Routine Skin Exam Present: intact, dry, warm - Routine Neurological Exam Present: alert, oriented X3, CN II-XII intact, moving all extremities - Detailed Neurological Exam: Coma Scale Eye Opening: Spontaneous Verbal Response: Oriented Motor Response: Obey commands [place] Coma Scale Total: 15 - Routine Psychiatric Exam Present: normal affect, normal thought process - Urinary Catheter Management Indwelling Urethral Catheter Cath placed during this visit: yes Reason for continuing: Hourly intake/output Insertion date: 04/05/18 Insertion time: 17:30 <Aruna Weeks - Last Filed: 04/09/18 14:07> Vital signs: Vital Signs 04/08/18 18:00 04/08/18 19:00 04/08/18 20:00 Temperature Pulse Rate 68 60 70 Respiratory Rate Blood Pressure Pulse Oximetry 04/08/18 20:52 04/08/18 21:00 04/08/18 22:00 Temperature 98.1 F Pulse Rate 70 68 62 Respiratory Rate 17 Blood Pressure 136/66 Pulse Oximetry 95 04/08/18 23:00 04/08/18 23:11 04/09/18 00:00 Temperature 98.0 F Pulse Rate 60 74 54 L Respiratory Rate 17 Blood Pressure 152/68 H Pulse Oximetry 96 04/09/18 01:00 04/09/18 02:00 04/09/18 02:30 Temperature Pulse Rate 72 58 L Respiratory Rate 17 Blood Pressure Pulse Oximetry 04/09/18 03:00 04/09/18 04:00 04/09/18 05:00 Temperature 98.1 F Pulse Rate 66 64 62 Respiratory Rate 19 Blood Pressure 158/79 H Pulse Oximetry 97 04/09/18 06:00 04/09/18 07:00 04/09/18 08:00 Temperature 98.7 F Pulse Rate 82 65 79 Respiratory Rate 20 Blood Pressure 160/79 H Pulse Oximetry 96 04/09/18 09:00 04/09/18 10:00 04/09/18 11:00 Temperature 99.1 F Pulse Rate 72 67 72 Respiratory Rate 18 Blood Pressure 131/63 Pulse Oximetry 95 04/09/18 12:00 04/09/18 13:00 04/09/18 14:00 Temperature Pulse Rate 60 75 63 Respiratory Rate Blood Pressure Pulse Oximetry 04/09/18 15:00 04/09/18 16:00 Temperature 99 F Pulse Rate 63 59 L Respiratory Rate 20 Blood Pressure 152/70 H Pulse Oximetry 96 Intake & Output 04/08/18 04/09/18 04/09/18 18:59 06:59 18:59 Intake Total 1820 / 1820 400 / 400 1560 / 1560 Output Total 800 / 800 900 / 900 1300 / 1300 Balance 1020 / 1020 -500 / -500 260 / 260 Weight 42 kg Intake: IV 1100 / 1100 600 / 600 NS Inj 1,000 ML @ 60 mls/hr IV. 1000 / 1000 500 / 500 CONT .[id number] SAVANNAH Rx#: [id number] Rocephin Inj 1,000 MG In NS Inj 100 / 100 100 / 100 100 ML @ 200 mls/hr IV.SIG Q24H SAVANNAH Rx#:[id number] Oral 720 / 720 400 / 400 960 / 960 Output: Urine Amount (Catheter) 800 / 800 900 / 900 1300 / 1300 Indwelling Urethral Catheter 800 / 800 900 / 900 1300 / 1300 Other: Date of Last Bowel Movement 04/08/18 04/09/18 04/09/18 - Urinary Catheter Management Indwelling Urethral Catheter Cath placed during this visit: no <Lukas Perdue - Last Filed: 04/09/18 17:57> Assessment and Plan - Assessment (1) Acute renal failure Code(s): N17.9 - Acute kidney failure, unspecified Status: Acute Plan: Baseline creatinine of 1.1 from December at [facility]. ASHWINI most likely prerenal azotemia, and intravascular volume depletion from diarrhea. Renal function is improving. Continue IVF. Reduce rate to 40 cc/hr. She is non oliguric. Have asked RN for [place] removal. PO fluids encouraged. Taper off IVF. Avoid nephrotoxins. Repeat labs. (2) Acute hyperkalemia Code(s): E87.5 - Hyperkalemia Status: Acute Plan: Improved, monitor. Continue to hold ARB as well as her home potassium supplementation for now. (3) Hypercalcemia Code(s): E83.52 - Hypercalcemia Status: Acute Plan: Improved with IVFs. SPEP and UPEP results pending. (4) Alzheimer disease Code(s): G30.9 - Alzheimer's disease, unspecified; F02.80 - Dementia in other diseases classified elsewhere without behavioral disturbance Status: Acute Plan: continue supportive care (5) Hypothyroidism Code(s): E03.9 - Hypothyroidism, unspecified Status: Acute Plan: continue Synthroid <Aruna Weeks - Last Filed: 04/09/18 14:07> - Assessment (1) Acute renal failure Code(s): N17.9 - Acute kidney failure, unspecified Status: Acute (2) Acute hyperkalemia Code(s): E87.5 - Hyperkalemia Status: Acute (3) Hypercalcemia Code(s): E83.52 - Hypercalcemia Status: Acute (4) Alzheimer disease Code(s): G30.9 - Alzheimer's disease, unspecified; F02.80 - Dementia in other diseases classified elsewhere without behavioral disturbance Status: Acute (5) Hypothyroidism Code(s): E03.9 - Hypothyroidism, unspecified Status: Acute - Attending Attestation patient was seen and examined. Agree with above assessment and plan. <Lukas Perdue - Last Filed: 04/09/18 17:57>
[2018-04-09] MEDS: Megestrol Acetate Liq 400 MG/10 ML UDC PO SCH (21:06)
[2018-04-10] MEDS: Sod Chloride 0.9% Inj 1,000 ML IV.CONT SCH (02:40)
[2018-04-10] MEDS: Levothyroxine 75 MCG Tablet PO SCH (06:14)
[2018-04-10 06:50] LABS: Albumin 2.4 g/dL (3.4-5.0); Calcium 8.3 mg/dL (8.5-10.1); Carbon Dioxide 16.2 meq/L (21.0-32.0); Potassium 3.5 meq/L (3.5-5.1)
[2018-04-10 06:54] LABS: Phosphorus 2.3 mg/dL (2.5-4.9)
[2018-04-10] MEDS: Famotidine 20 MG Tablet PO SCH (09:08)
[2018-04-10] MEDS: Potassium Chloride 10 MEQ ER Capsule PO SCH (09:09)
[2018-04-10] MEDS ORDERED: Sodium Bicarbonate 8.4% Inj 100 MEQ in Dextrose 5% in Water Inj 900 ML IV.CONT SCH ×2 (10:00)
--- NOTE | 2018-04-10 10:23 | P.DCO ---
- Physical Therapy Order: Evaluate and treat, Strength and gait training - Home Health Nursing Order: Medical education, Nursing assessment with vital signs - Certification I have seen patient Wili García on 04/10/18. My clinical findings support the need for the requested home health care services because: Impaired cognition/judgement I certify that my clinical findings support that this patient is homebound because: Impaired cognitive ability/safety, Unsteady gait/balance
--- NOTE | 2018-04-10 10:53 | P.PNNP ---
Subjective Interval history: More alert today. Renal function is better. Acidosis is worse. To be discharged today. <Aruna Weeks - Last Filed: 04/10/18 10:50> Physical Exam Vital signs: Vital Signs 04/09/18 11:00 04/09/18 12:00 04/09/18 13:00 Temperature 99.1 F Pulse Rate 72 60 75 Respiratory Rate 18 Blood Pressure 131/63 Pulse Oximetry 95 04/09/18 14:00 04/09/18 15:00 04/09/18 16:00 Temperature 99 F Pulse Rate 63 63 59 L Respiratory Rate 20 Blood Pressure 152/70 H Pulse Oximetry 96 04/09/18 17:00 04/09/18 18:00 04/09/18 19:00 Temperature 98.0 F Pulse Rate 58 L 73 74 Respiratory Rate 18 Blood Pressure 163/78 H Pulse Oximetry 97 04/09/18 20:00 04/09/18 21:00 04/09/18 22:00 Temperature Pulse Rate 72 80 74 Respiratory Rate Blood Pressure Pulse Oximetry 04/09/18 23:00 04/10/18 00:00 04/10/18 01:00 Temperature 98.6 F Pulse Rate 66 66 58 L Respiratory Rate 16 Blood Pressure 165/77 H Pulse Oximetry 97 04/10/18 02:00 04/10/18 03:00 04/10/18 04:00 Temperature 98.3 F Pulse Rate 62 70 68 Respiratory Rate 20 Blood Pressure 168/82 H Pulse Oximetry 98 04/10/18 05:00 04/10/18 06:00 04/10/18 07:00 Temperature 98.9 F Pulse Rate 74 70 67 Respiratory Rate 18 Blood Pressure 168/83 H Pulse Oximetry 96 04/10/18 08:00 04/10/18 09:00 04/10/18 10:00 Temperature Pulse Rate 66 68 67 Respiratory Rate Blood Pressure Pulse Oximetry Intake & Output 04/09/18 04/10/18 04/10/18 18:59 06:59 18:59 Intake Total 1560 / 1560 1440 / 1440 Output Total 1300 / 1300 750 / 750 Balance 260 / 260 690 / 690 Weight 44 kg Intake: IV 600 / 600 960 / 960 NS Inj 1,000 ML @ 40 mls/hr IV. 500 / 500 960 / 960 CONT .Q24H [facility] Rx#:[id number] Rocephin Inj 1,000 MG In NS Inj 100 / 100 100 ML @ 200 mls/hr IV.SIG Q24H [facility] Rx#:[id number] Oral 960 / 960 480 / 480 Output: Urine 750 / 750 Urine Amount (Catheter) 1300 / 1300 Indwelling Urethral Catheter 1300 / 1300 Other: Date of Last Bowel Movement 04/09/18 04/10/18 04/10/18 - Constitutional no acute distress - Routine HEENT Exam Head: Present: normocephalic - Routine Neck Exam Present: supple, full ROM - Routine Respiratory Exam Present: CTA bilaterally. Absent: accessory muscle use - Routine Cardiovascular Exam Present: RRR, S1, S2 - Routine Abdominal Exam Present: soft, normoactive bowel sounds - Routine Extremities Exam Present: full ROM, pulses intact. Absent: edema - Routine Skin Exam Present: intact, dry, warm - Routine Neurological Exam Present: alert, oriented X3, CN II-XII intact, moving all extremities - Detailed Neurological Exam: Coma Scale Eye Opening: Spontaneous Verbal Response: Oriented Motor Response: Obey commands Andi Coma Scale Total: 15 - Routine Psychiatric Exam Present: normal affect, normal thought process - Urinary Catheter Management Indwelling Urethral Catheter Cath placed during this visit: yes, but has since been removed by the nurse Reason for continuing: Hourly intake/output Insertion date: 04/05/18 Insertion time: 17:30 Removal date: 04/09/18 Removal time: 15:30 <Aruna Weeks - Last Filed: 04/10/18 10:50> Vital signs: Intake & Output 04/10/18 04/11/18 04/11/18 18:59 06:59 18:59 Intake Total 1000 / 1000 Balance 1000 / 1000 Intake: IV 1000 / 1000 NS Inj 1,000 ML @ 40 mls/hr IV. 1000 / 1000 CONT .Q24H [facility] Rx#:[id number] Other: Date of Last Bowel Movement 04/10/18 - Urinary Catheter Management Indwelling Urethral Catheter Cath placed during this visit: no <Lukas Perdue - Last Filed: 04/11/18 15:29> Assessment and Plan - Assessment (1) Acute renal failure Code(s): N17.9 - Acute kidney failure, unspecified Status: Acute Plan: Baseline creatinine of 1.1 from December at [facility]. ASHWINI most likely prerenal azotemia, and intravascular volume depletion from diarrhea. Renal function improving. For discharge, give oral bicarbonate 650 BID x 30 days. She is non oliguric.Childress removed yesterday. PO fluids encouraged at home IVF stopped. Avoid nephrotoxins. Stable for discharge. (2) Acute hyperkalemia Code(s): E87.5 - Hyperkalemia Status: Acute Plan: Improved, Okay to resume ARB. (3) Hypercalcemia Code(s): E83.52 - Hypercalcemia Status: Acute Plan: Improved with IVFs. SPEP and UPEP results pending. (4) Alzheimer disease Code(s): G30.9 - Alzheimer's disease, unspecified; F02.80 - Dementia in other diseases classified elsewhere without behavioral disturbance Status: Acute Plan: continue supportive care (5) Hypothyroidism Code(s): E03.9 - Hypothyroidism, unspecified Status: Acute Plan: continue Synthroid <Aruna Weeks - Last Filed: 04/10/18 10:50> - Assessment (1) Acute renal failure Code(s): N17.9 - Acute kidney failure, unspecified Status: Acute (2) Acute hyperkalemia Code(s): E87.5 - Hyperkalemia Status: Acute (3) Hypercalcemia Code(s): E83.52 - Hypercalcemia Status: Acute (4) Alzheimer disease Code(s): G30.9 - Alzheimer's disease, unspecified; F02.80 - Dementia in other diseases classified elsewhere without behavioral disturbance Status: Acute (5) Hypothyroidism Code(s): E03.9 - Hypothyroidism, unspecified Status: Acute - Attending Attestation patient was seen and examined. Agree with above assessment and plan. <Lukas Perdue - Last Filed: 04/11/18 15:29>
--- NOTE | 2018-04-10 16:31 | P.DS ---
Date of admission: 04/05/18 17:55 Primary care physician: Virginia Schumacher DO Brief History from admission: 83-year-old female with a medical history significant for Alzheimer's dementia, hypertension, hypothyroidism sent from the neurologist, Dr. Givens's office for generalized weakness. Patient sent for evaluation for C. difficile and UTI. Apparently she has been having diarrhea for the past month per her . Daughter at bedside reports it probably has been longer than a month. The patient herself has dementia and cannot contribute to the history. She does complain of chronic bilateral elbow pain. Her appetite has been poor, not eating or drinking very much. Evaluation in the emergency room revealed acute renal failure and probable UTI. Regarding chronic diarrhea, the patient was seen by Dr. Araujo once outpatient. Update on the day of discharge: Patient reports she is feeling much better. More talkative today. No diarrhea. Eating more. DS: Diagnosis - Discharge Diagnosis (1) Acute renal failure Status: Acute (2) Chronic diarrhea Status: Acute (3) Severe dehydration Status: Acute (4) Alzheimer disease Status: Acute (5) Acute hyperkalemia Status: Acute (6) Hypercalcemia Status: Acute (7) Hypermagnesemia Status: Acute DS: Medications - Discharge Medications Prescriptions: cholestyramine (with sugar) 4 gm PO DAILY 30 Days each Lactobacillus acidoph-L.bulgar [Floranex] 1 gm PO TID 30 Days each sodium bicarbonate 650 mg PO BID #60 tab DS: Summary Hospital Course: 83-year-old female admitted with acute renal failure and multiple electrolyte abnormalities likely secondary to dehydration from chronic diarrhea over the past 1+ month. Patient also presented with evidence of urinary tract infection. Treatment course detailed below: Acute renal failure: Secondary to prerenal azotemia from severe dehydration. -Patient followed by nephrology. She was treated with IV fluid. Renal functions improved. Stable for discharge and advised to continue with oral hydration. Chronic diarrhea: - GI followed the patient. All of her stool studies remain negative. It appears this is related to her diet which includes drinking a lot of boost and very little fluid with consistency. Pepcid and Questran added. Diarrhea resolved Multiple electrolytes abnormalities including hypercalcemia, hypermagnesemia, high phosphate. Secondary to severe dehydration. -Resolved with IV hydration Abnormal urinalysis: Patient treated empirically with Rocephin. Urine cultures negative. Antibiotics discontinued. Continue chronic medications for hypothyroidism and dementia. - Time Spent with Patient Total time spent providing and/or coordinating discharge services: Greater than 30 minutes Exam Vital signs: Vital Signs 04/09/18 17:00 04/09/18 18:00 04/09/18 19:00 Temperature 98.0 F Pulse Rate 58 L 73 74 Respiratory Rate 18 Blood Pressure 163/78 H Pulse Oximetry 97 04/09/18 20:00 04/09/18 21:00 04/09/18 22:00 Temperature Pulse Rate 72 80 74 Respiratory Rate Blood Pressure Pulse Oximetry 04/09/18 23:00 04/10/18 00:00 04/10/18 01:00 Temperature 98.6 F Pulse Rate 66 66 58 L Respiratory Rate 16 Blood Pressure 165/77 H Pulse Oximetry 97 04/10/18 02:00 04/10/18 03:00 04/10/18 04:00 Temperature 98.3 F Pulse Rate 62 70 68 Respiratory Rate 20 Blood Pressure 168/82 H Pulse Oximetry 98 04/10/18 05:00 04/10/18 06:00 04/10/18 07:00 Temperature 98.9 F Pulse Rate 74 70 67 Respiratory Rate 18 Blood Pressure 168/83 H Pulse Oximetry 96 04/10/18 08:00 04/10/18 09:00 04/10/18 10:00 Temperature Pulse Rate 66 68 67 Respiratory Rate Blood Pressure Pulse Oximetry Intake & Output 04/09/18 04/10/18 04/10/18 18:59 06:59 18:59 Intake Total 1560 / 1560 1440 / 1440 1000 / 1000 Output Total 1300 / 1300 750 / 750 Balance 260 / 260 690 / 690 1000 / 1000 Weight 44 kg Intake: IV 600 / 600 960 / 960 1000 / 1000 NS Inj 1,000 ML @ 40 mls/hr IV. 500 / 500 960 / 960 1000 / 1000 CONT .Q24H [facility] Rx#:[id number] Rocephin Inj 1,000 MG In NS Inj 100 / 100 100 ML @ 200 mls/hr IV.SIG Q24H [facility] Rx#:[id number] Oral 960 / 960 480 / 480 Output: Urine 750 / 750 Urine Amount (Catheter) 1300 / 1300 Indwelling Urethral Catheter 1300 / 1300 Other: Date of Last Bowel Movement 04/09/18 04/10/18 04/10/18 Narrative: GENERAL: Elderly female, demented. CARDIOVASCULAR: Normal rate and regular rhythm without murmurs, gallops, or rubs. RESPIRATORY:Breath sounds equal and clear to auscultation bilaterally. GASTROINTESTINAL: Abdomen soft, non-tender, non-distended. Normal active bowel sounds MUSCULOSKELETAL: Extremities without cyanosis, or edema. NEURO: Confused, generalized weakness, follow some commands. Results Procedures completed during hospitalization: None Labs on day of discharge: Labs from last 24 hours 04/10/18 05:34 Sodium 142 Potassium 3.5 Chloride 113 H Carbon Dioxide 16.2 L Anion Gap 13 BUN 23 H Creatinine 2.35 H Estimated GFR 20 L Random Glucose 71 L Calcium 8.3 L Phosphorus 2.3 L Albumin 2.4 L - Impressions ITS Impressions Chest X-Ray 04/05/18 14:37 CONCLUSION: COPD changes. Stable compared to a previous dated 03/22/2015. Abdomen/Pelvis CT 04/05/18 16:28 CONCLUSION: 1. Numerous tiny nonobstructing bilateral renal calculi. 2. Mild to moderate compression deformity of L1 associated with scoliosis. Fracture appears remote. 3. Mild left basilar infiltrate. 4. Trace pericardial effusion. Abdomen/Bladder Ultrasound 04/06/18 00:00 CONCLUSION: 1. Redemonstration of numerous bilateral renal calyceal calculi similar to recent CT exam. 2. No hydronephrosis. 3. Small left renal cysts. Abdomen X-Ray 04/09/18 08:00 CONCLUSION: Mild ileus. Discharge Plan - Discharge Disposition Patient Disposition: W/Home Health Service - Discharge Condition Condition: Stable - Discharge Order Discharge Orders: Discharge Order (Routine); Ordered 04/10/18 Ordered By: Judith Benjamin - Physicians Team Primary Care Provider: Virginia Schumacher Attending Provider: Judith Benjamin Other Providers: Chuy Curiel MD ; Lei Lancaster MD ; [facility]
== END 2018-04-10 12:00 | disposition home health service (06) ==
LOC: PHED 14:09 → PHEDA 17:55 → HCIS 21:06
PROVIDERS: ADMIT Family Medicine; ATTEND Family Medicine